=== PATIENT | female | born 1980 | race Caucasian/White ===

== ENCOUNTER → 2023-03-19 08:14 | Outpatient (REF) | payer MEDICARE, OTHER, SELFPAY ==
[2023-03-19 08:20] VITALS: BP 106/78; BP_SYST 94
[2023-03-19 09:05] VITALS: BP 107/76; BP_SYST 80
[2023-03-19 09:15] VITALS: BP 107/76
[2023-03-19 11:42] LABS: Body Fluid Mononuclear 90.6 %; Body Fluid Polymorphonuclear 9.4 %; Body Fluid WBC 128 /CUMM
[2023-03-19 11:43] LABS: Body Fluid Second Tech EM
== END ==
LOC: RADI 08:14
PROVIDERS: ATTENDING PHYSICIAN Internal Medicine Gastroenterology; FAMILY PHYSICIAN Registered Nurse
DX: R18.8 Other ascites (principal)
CPT/HCPCS: 49083; 87015; 87070; 87205; 89051

== ENCOUNTER → 2023-03-26 08:22 | Outpatient (REF) | payer MEDICARE, OTHER, SELFPAY ==
[2023-03-26 08:35] VITALS: BP 113/74; BP_SYST 84
[2023-03-26 08:45] VITALS: BP 105/73; BP_SYST 82
[2023-03-26 09:49] LABS: % Basophils 0.9 % (0-2); % Eosinophils 8.1 % (0-6); % Immature Granulocytes 0.3 % (0-0.5); % Lymphocytes 32.7 % (20.5-51.1); % Monocytes 7.8 % (1.7-9.3); % Neutrophils 50.2 % (42.2-75.2); Absolute Eosinophils 0.3 10^3/uL (0-0.7); Absolute Lymphocytes 1.1 10^3/uL (1.2-3.4); Absolute Monocytes 0.3 10^3/uL (0.1-0.6); Absolute Neutrophils 1.6 10^3/uL (1.4-6.5); Hematocrit 32.6 % (37.0-47.0); Hemoglobin 10.4 g/dL (12.0-16.0); Mean Corp Hgb Conc. 31.9 g/dL (33.0-37.0); Mean Corpuscular Hgb 29.7 pg (27.0-31.0); Mean Corpuscular Volume 93.1 fL (81.0-99.0); Mean Platelet Volume 12.2 fL (7.4-10.4); Nucleated Red Blood Cells % 0 %; Platelet Count 95 10^3/uL (130-400); Red Cell Dist. Width 17.4 % (11.5-14.5); White Blood Cell Count 3.2 10^3/uL (4.8-10.8)
[2023-03-26 09:51] LABS: INR 1.61
[2023-03-26 09:52] LABS: APTT 37.2 Sec (23.4-35.0)
[2023-03-26 10:11] LABS: ALT (SGPT) 20 U/L (0-35); AST (SGOT) 49 U/L (14-36); Albumin 2.6 g/dl (3.5-5.0); Alkaline Phosphatase 104 U/L (38-126); Blood Urea Nitrogen 3 mg/dl (7-17); Calcium 7.8 mg/dl (8.4-10.2); Carbon Dioxide 27 mmol/L (22-30); Chloride 101 mmol/L (98-107); Direct Bilirubin 0.7 mg/dl (0.0-0.4); Estimated Creatinine Clearance 100 ml/min; Glucose 84 mg/dl (70-99); Potassium 3.2 mmol/L (3.5-5.1); Sodium 135 mmol/L (135-145); Total Protein 5.8 g/dl (6.3-8.2); eGFR > 60.00
== END ==
LOC: RADI 08:22
PROVIDERS: ATTENDING PHYSICIAN Internal Medicine Gastroenterology; FAMILY PHYSICIAN Registered Nurse
DX: R18.8 Other ascites (principal); Z53.8 Procedure and treatment not carried out for other reasons
CPT/HCPCS: 36415; 76705; 80048; 80076; 85025; 85610; 85730

== ENCOUNTER 2023-03-29 06:33 | Day surgery (SDC) | payer MEDICARE, OTHER, SELFPAY ==
[2023-03-29 11:42] VITALS: BMI 20.9
[2023-03-29 11:43] VITALS: BP 110/76
[2023-03-29 11:55] VITALS: BMI 20.9
[2023-03-29 13:10] VITALS: BP 119/93
[2023-03-29 13:15] VITALS: BP 119/93
[2023-03-29 13:24] VITALS: BP 116/83
[2023-03-29 13:30] VITALS: BP 118/82
== END 2023-03-29 14:00 | disposition home or self-care (01) ==
LOC: SDS 06:33
PROVIDERS: ATTENDING PHYSICIAN Internal Medicine Gastroenterology
DX: I85.00 Esophageal varices without bleeding (principal); K31.89 Other diseases of stomach and duodenum; K22.70 Barrett's esophagus without dysplasia
CPT/HCPCS: 43244

== ENCOUNTER 2023-03-31 22:53 | Emergency (ER) | payer MEDICARE, OTHER, SELFPAY ==
[2023-03-31 23:01] VITALS: BP 137/83
--- NOTE | 2023-03-31 23:51 | ED.GENMED ---
Addendum entered and electronically signed by Omid Xiong PA-C 04/01/23 14:41:
Blood cultures positive for gram-negative bacilli. Spoke with patient immediately after receiving the information from the lab. Advised her to come back for evaluation.
Original Note:
History of Present Illness
General
Chief Complaint: Fever
Time Seen by Provider: 03/31/23 23:41
Travel History
Have you had any contact with someone who has COVID-19?: No
Do you have any symptoms of coronavirus? Fever > 100 degrees, chills, cough, shortness of breath, sore throat, loss of taste or smell, muscle aches, or headache?: No
History of Present Illness
History of Present Illness:
42-year-old female with history of alcoholic cirrhosis with ascites and esophageal varices presents to the emergency department for evaluation of fever and upper abdominal pain beginning earlier today. She is 2 days status post an upper endoscopy
performed at this hospital with banding of esophageal varices x 3. She did have voice hoarseness and throat discomfort postprocedural but this has been improving, awoke today with a fever that has not improved. Also reports intermittent upper
abdominal pain that is new. Denies any chest pain, back pain, nausea, vomiting, diarrhea, or coughing. Denies any cold or flu symptoms.
Past History
Past History
ED Past Medical History: None
ED Past Surgical History: None
Social History
Alcohol: Former
Review of Systems
Review of Systems
Allergies reviewed?: Yes
All Other Systems: ROS reviewed and negative except as documented in HPI and ROS
Phy Exam
Physical Exam
Physical Exam:
GEN: Thin and frail appearing, not cachectic
Eyes: PERRLA, EOMs intact, no scleral icterus
HENT: NCAT, oral mucosa moist, no JVD, no cervical adenopathy.
Lungs: CTAB, no wheezes, rales, rhonchi, normal chest wall excursion
Cardiac: RRR, no M/R/G, no peripheral edema. Radial pulses 2+ bilat
Abdomen: Mildly protuberant abdomen, generally soft and nonrigid
Neuro: AO x 3, no focal deficits to BUE/BLE, normal sensation throughout
MSK: No gross deformity or ecchymosis. No edema. No digital clubbing
Skin: No rashes, petechiae. Normal color, no pallor or jaundice.
Psych: Calm, cooperative, proper hygiene
Course
Orders/Labs/Results
Orders:
Orders
03/31/23 23:50
COVID-19 Antigen Urgent
Source: Nasal Swab
Complete Blood Count/With Diff Urgent
Comprehensive Metabolic Panel Urgent
Lipase Urgent
Prothrombin Time Urgent
Blood Culture Q30M
WARREN Source: Blood/Venous
Specimen Description:
03/31/23 23:51
Urinalysis Reflex To Culture Urgent
Date Specimen was Collected: 04/01/23
Time Specimen was Collected: 00:36
Influenza A+B Rapid Molecular Urgent
WARREN Source: Nasal Swab
Specimen Description:
04/01/23 00:00
CT Abd/Pel (IV only)-DH only Urgent
Reason For Exam: fever, upper abd pain, s/p endoscopy 2d ago
04/01/23 00:15
HCG, Serum Qualitative Screen Urgent
Blood Culture Q30M
WARREN Source: Blood/Venous
Specimen Description:
04/01/23 00:25
Test Result ONCE
04/01/23 01:01
Urine Microscopic Reflex Cult Urgent
Abnormal Lab Results
04/01/23 04/01/23 04/01/23
00:14 00:15 01:01
RBC 3.63 L 10^6/uL
(4.20-5.40)
Hgb 10.5 L g/dL
(12.0-16.0)
Hct 31.8 L %
(37.0-47.0)
RDW 16.9 H %
(11.5-14.5)
Plt Count 87 L 10^3/uL
(130-400)
MPV 11.3 H fL
(7.4-10.4)
Absolute Lymphs (auto) 0.9 L 10^3/uL
(1.2-3.4)
Lymphocytes % 17.7 L %
(20.5-51.1)
PT 19.3 H Sec
(11.4-14.6)
Sodium 130 L mmol/L
(135-145)
Potassium 3.3 L mmol/L
(3.5-5.1)
BUN 4 L mg/dl
(7-17)
Calcium 7.7 L mg/dl
(8.4-10.2)
Total Bilirubin 2.1 H mg/dl
(0.2-1.3)
AST 42 H U/L
(14-36)
Total Protein 6.1 L g/dl
(6.3-8.2)
Albumin 2.7 L g/dl
(3.5-5.0)
Urine Ketones 1+ A
(Negative)
Urine Bilirubin 2+ A
(Negative)
Urine Urobilinogen 4+ A
(Neg - 1+)
Leukocyte Esterase Rfl Trace A
(Negative)
Urine Bacteria (Reflex) Few A
(Negative)
04/01/23 00:14
04/01/23 00:15
Vital Signs
Initial and Last Documented VS:
Initial Vital Signs
Temp Pulse Resp BP Pulse Ox
100.4 F H 101 20 137/83 90
03/31/23 23:01 03/31/23 23:01 03/31/23 23:01 03/31/23 23:01 03/31/23 23:01
Last Documented Vital Signs
Temp Pulse Resp BP Pulse Ox
100.4 F H 92 19 132/78 96
03/31/23 23:01 04/01/23 01:00 04/01/23 01:00 04/01/23 01:00 04/01/23 01:00
MDM/Problems Addressed
MDM/Problems Addressed:
Uncertain etiology to the patient's fever at this time. Certainly would consider bacteremia given recent endoscopy however procedure was performed approximately 48 hours ago thus not highly suspicious that she would be bacteremic this rapidly. SBP
is also considered, the patient has an appointment for paracentesis on Sunday and I feel it is reasonable for this to wait an additional 24 hours for her routine appointment given that she is clinically stable and is not septic, in addition in the
setting of her coagulopathy. Discussed ED return parameters
*Critical Care Note
Total Time (30-74mins, 75-104mins- exclusive of procedures): Not Applicable
ED Attending Note
-
Portions of this chart may have been created with voice recognition software.� Occasional wrong word or��sound alike� substitutions may have occurred due to the inherent limitations of voice recognition software.
Discharge Plan
Departure
Patient Disposition: Home (Routine Discharge)
Date of Disposition: 04/01/23
Time of Disposition: 03:16
Patient with high blood pressure during this ER visit?: No
Discharge Problem:
Fever
Instructions: Abdominal Pain
Prescriptions:
No Action
thiamine HCl (vitamin B1) 100 mg Tablet
100 mg PO DAILY Qty: 0 0RF
folic acid 1 mg tablet
1 mg PO DAILY
furosemide 40 MG tablet
40 mg PO DAILY Qty: 30 0RF
pantoprazole 40 mg Tablet,Delayed Release (Dr/Ec)
40 mg PO BID Qty: 60 0RF
spironolactone 50 MG tablet
100 mg PO DAILY Qty: 30 0RF
lactulose 20 gram/30 mL Solution
20 g PO QID Qty: 2880 0RF
amoxicillin 875 mg Tablet
475 mg PO BID
oxycodone 10 mg Tablet
10 mg PO Q6H PRN (Reason: pain)
Referrals:
Marah Machado CRNP [Family Provider] -
Activity Restrictions/Additional Instructions:
If blood cultures are positive we will call you and ask you to return
We discussed the possibility of peritonitis, or infected fluid in the belly. You have an appointment for a paracentesis on Sunday, this will determine if your fluid is infected
Return to the ER if symptoms worsen
Interventions
Interventions:
*Risk Screen - Suicide Last Done: 03/31/23 23:55
*General Assessment Last Done: 03/31/23 23:01
*Neglect/Abuse Screening Last Done: 03/31/23 23:01
ED- Fall Risk Assessment Last Done: 03/31/23 23:01
*ED COVID-19 Vaccine History Last Done: 03/31/23 23:01
[facility]-Wgtvmzjfuy Assessment Last Done: 03/31/23 23:55
ED- Neurological Assessment Last Done: 03/31/23 23:55
ED-Skin Assessment Last Done: 03/31/23 23:55
[2023-04-01 00:50] LABS: INR 1.64; PT 19.3 Sec (11.4-14.6)
[2023-04-01 00:57] LABS: COVID-19 Antigen Negative (Negative)
[2023-04-01 01:00] VITALS: BP 132/78
[2023-04-01 01:09] LABS: % Basophils 0.8 % (0-2); % Eosinophils 2.4 % (0-6); % Immature Granulocytes 0.2 % (0-0.5); % Lymphocytes 17.7 % (20.5-51.1); % Monocytes 7.3 % (1.7-9.3); % Neutrophils 71.6 % (42.2-75.2); Absolute Eosinophils 0.1 10^3/uL (0-0.7); Absolute Lymphocytes 0.9 10^3/uL (1.2-3.4); Absolute Monocytes 0.4 10^3/uL (0.1-0.6); Absolute Neutrophils 3.6 10^3/uL (1.4-6.5); Hematocrit 31.8 % (37.0-47.0); Hemoglobin 10.5 g/dL (12.0-16.0); Mean Corpuscular Hgb 28.9 pg (27.0-31.0); Mean Corpuscular Volume 87.6 fL (81.0-99.0); Mean Platelet Volume 11.3 fL (7.4-10.4); Nucleated Red Blood Cells % 0 %; Platelet Count 87 10^3/uL (130-400); Red Blood Cell Count 3.63 10^6/uL (4.20-5.40); Red Cell Dist. Width 16.9 % (11.5-14.5)
[2023-04-01 01:23] LABS: ALT (SGPT) 19 U/L (0-35); AST (SGOT) 42 U/L (14-36); Albumin 2.7 g/dl (3.5-5.0); Alkaline Phosphatase 107 U/L (38-126); Blood Urea Nitrogen 4 mg/dl (7-17); Calcium 7.7 mg/dl (8.4-10.2); Carbon Dioxide 25 mmol/L (22-30); Chloride 101 mmol/L (98-107); Glucose 99 mg/dl (70-99); Lipase 51 U/L (23-300); Potassium 3.3 mmol/L (3.5-5.1); Sodium 130 mmol/L (135-145); Total Bilirubin 2.1 mg/dl (0.2-1.3); Total Protein 6.1 g/dl (6.3-8.2); eGFR > 60.00
[2023-04-01 01:26] LABS: Urine Albumin Trace (Neg - Trace); Urine Bilirubin 2+ (Negative); Urine Character Clear (Clear); Urine Color Amber; Urine Glucose Negative (Negative); Urine Ketone 1+ (Negative); Urine Leukocyte Trace (Negative); Urine Nitrite Negative (Negative); Urine Occult Blood Negative (Negative); Urine Urobilinogen 4+ (Neg - 1+)
[2023-04-01 01:36] LABS: HCG, Serum Qualitative Screen Negative
[2023-04-01 01:53] LABS: Urine Squamous Cell 26-30 /LPF (Few)
[2023-04-01 01:54] LABS: Urine Bacteria Few (Negative); Urine Red Blood Cell None Seen /HPF (0-2)
[2023-04-01 04:04] VITALS: BP 128/78
== END 2023-04-01 04:08 | disposition home or self-care (01) ==
LOC: EMR 22:53
PROVIDERS: Physician Assistant; EMERGENCY PHYSICIAN Emergency Medicine; FAMILY PHYSICIAN Registered Nurse
DX: R50.9 Fever, unspecified (principal); R78.81 Bacteremia; R10.10 Upper abdominal pain, unspecified; Z11.52 Encounter for screening for COVID-19
CPT/HCPCS: 99284; 74177; 80053; 81003; 81015; 83690; 84703; 85025; 85610; 87040; 87077; 87186; 87205; 87502; 87811; Q9967

== ENCOUNTER 2023-04-01 20:13 | Inpatient (IN) | payer MEDICARE, OTHER, SELFPAY ==
[2023-04-01 17:46] VITALS: BP 116/78
[2023-04-01 18:41] LABS: % Basophils 0.4 % (0-2); % Eosinophils 1.8 % (0-6); % Immature Granulocytes 0.2 % (0-0.5); % Lymphocytes 18.2 % (20.5-51.1); % Monocytes 9.1 % (1.7-9.3); % Neutrophils 70.3 % (42.2-75.2); Absolute Eosinophils 0.1 10^3/uL (0-0.7); Absolute Lymphocytes 0.9 10^3/uL (1.2-3.4); Absolute Monocytes 0.5 10^3/uL (0.1-0.6); Absolute Neutrophils 3.6 10^3/uL (1.4-6.5); Hematocrit 28.9 % (37.0-47.0); Hemoglobin 9.8 g/dL (12.0-16.0); Mean Corp Hgb Conc. 33.9 g/dL (33.0-37.0); Mean Corpuscular Hgb 29.3 pg (27.0-31.0); Mean Corpuscular Volume 86.5 fL (81.0-99.0); Mean Platelet Volume 11.6 fL (7.4-10.4); Nucleated Red Blood Cells % 0 %; Platelet Count 87 10^3/uL (130-400); Red Blood Cell Count 3.34 10^6/uL (4.20-5.40); Red Cell Dist. Width 17.2 % (11.5-14.5); White Blood Cell Count 5.1 10^3/uL (4.8-10.8)
[2023-04-01 18:50] LABS: INR 1.97; PT 22.3 Sec (11.4-14.6)
[2023-04-01 18:52] LABS: ALT (SGPT) 19 U/L (0-35); AST (SGOT) 40 U/L (14-36); Albumin 2.7 g/dl (3.5-5.0); Alkaline Phosphatase 100 U/L (38-126); Blood Urea Nitrogen 4 mg/dl (7-17); Calcium 7.6 mg/dl (8.4-10.2); Carbon Dioxide 24 mmol/L (22-30); Chloride 102 mmol/L (98-107); Glucose 101 mg/dl (70-99); Potassium 3.4 mmol/L (3.5-5.1); Sodium 130 mmol/L (135-145); Total Bilirubin 2.4 mg/dl (0.2-1.3); eGFR > 60.00
--- NOTE | 2023-04-01 19:08 | ED.GENMED ---
History of Present Illness
General
Chief Complaint: Abnormal Lab Value
Time Seen by Provider: 04/01/23 18:04
Travel History
Have you had any contact with someone who has COVID-19?: No
Do you have any symptoms of coronavirus? Fever > 100 degrees, chills, cough, shortness of breath, sore throat, loss of taste or smell, muscle aches, or headache?: No
History of Present Illness
History of Present Illness:
42-year-old female with history of alcoholic cirrhosis with ascites returns the emergency department due to positive blood cultures. She was seen in this emergency department overnight last night self due to acute fever. She is now 3 days status
post upper endoscopy with esophageal variceal banding. Extensive workup last night showed no evidence for acute bacterial infection however 1 out of 2 blood cultures were positive this morning for gram-negative bacteremia and she was advised to
come back for admission. She does continue to have abdominal pain
Past History
Past History
ED Past Medical History: None
ED Past Surgical History: None
Social History
Alcohol: Former
Review of Systems
Review of Systems
Allergies reviewed?: Yes
All Other Systems: ROS reviewed and negative except as documented in HPI and ROS
Phy Exam
Physical Exam
Physical Exam:
GEN: Thin and frail, chronically ill-appearing, no acute distress
HEENT: Oral mucosa moist, no scleral icterus
Cardiac: Regular rate
Lung: No respiratory distress, no tachypnea
Abdomen: Protuberant, soft, grossly nontender
MSK: No gross deformity or injuries
Skin: Good color, no pallor or jaundice, no rashes
Neuro: AO x3, moves all extremities freely
Psych: Calm, cooperative
Course
Orders/Labs/Results
Orders:
Orders
04/01/23 18:31
Complete Blood Count/With Diff Urgent
Comprehensive Metabolic Panel Urgent
Prothrombin Time Urgent
Blood Culture Q30M
WARREN Source: Blood/Venous
Specimen Description:
04/01/23 18:57
Piperacillin/Tazo 3.375 Gram [Zosyn] 3.375 gram in 50 ml IV NOW
04/01/23 19:30
Blood Culture Q30M
WARREN Source: Blood/Venous
Specimen Description:
04/01/23 19:51
Admit/Transfer Patient As Directed
Co-Sign Provider:
Level of Care: Inpatient admission
Assign to:: Medical/Surgical
Physician / Group: Hospitalist
Diagnosis: Positive blood cultures
Reason for Hospitalization: Positive blood cultures
Expected length of stay greater than two midnights?: Yes
ELOS- Estimated Length of Stay in days: 3
I certify the patient meets the requirements for IP care: Yes
04/01/23 19:53
Code Status As Directed
Resuscitation Status: Full Code
04/01/23 21:02
Oxycodone [Roxicodone] 10 mg PO Q6HPRN PRN
Pantoprazole [Protonix] 40 mg PO BID
Potassium Chloride Powder [Klor-Con] 20 meq PO BID
04/01/23 21:02
Activity As Directed
Activity Level: With Assistance
Pneumatic Compression Sleeves As Directed
Type: Knee high
Vital Signs As Directed
Frequency: Per unit guidelines
DX Deep Vein Thrombosis Video Routine
04/01/23 22:00
Lactulose [Duphalac/Chronulac] 20 grams PO QID
Sucralfate Suspension [Carafate Suspension] 1 gm PO QID
04/02/23 02:00
Piperacillin/Tazo 3.375 Gram [Zosyn] 3.375 grams in 50 ml IV Q6H
04/02/23 Breakfast
Regular
At Your Request: Full Participation
Basic Metabolic Panel IN AM
Complete Blood Count/No Diff IN AM
Magnesium IN AM
04/02/23 08:00
FOLic ACID [Folvite] 1 mg PO DAILY
Furosemide [Lasix] 40 mg PO DAILY
Spironolactone [Aldactone] 150 mg PO DAILY
Thiamine HCl [Vitamin B1] 100 mg PO DAILY
Abnormal Lab Results
04/01/23
18:31
RBC 3.34 L 10^6/uL
(4.20-5.40)
Hgb 9.8 L g/dL
(12.0-16.0)
Hct 28.9 L %
(37.0-47.0)
RDW 17.2 H %
(11.5-14.5)
Plt Count 87 L 10^3/uL
(130-400)
MPV 11.6 H fL
(7.4-10.4)
Absolute Lymphs (auto) 0.9 L 10^3/uL
(1.2-3.4)
Lymphocytes % 18.2 L %
(20.5-51.1)
PT 22.3 H Sec
(11.4-14.6)
Sodium 130 L mmol/L
(135-145)
Potassium 3.4 L mmol/L
(3.5-5.1)
BUN 4 L mg/dl
(7-17)
Creatinine 0.5 L mg/dL
(0.6-1.0)
Glucose 101 H mg/dl
(70-99)
Calcium 7.6 L mg/dl
(8.4-10.2)
Total Bilirubin 2.4 H mg/dl
(0.2-1.3)
AST 40 H U/L
(14-36)
Total Protein 6.0 L g/dl
(6.3-8.2)
Albumin 2.7 L g/dl
(3.5-5.0)
04/01/23 18:31
04/01/23 18:31
Vital Signs
Initial and Last Documented VS:
Initial Vital Signs
Temp Pulse Resp BP Pulse Ox
99.6 F 99 18 116/78 93
04/01/23 17:46 04/01/23 17:46 04/01/23 17:46 04/01/23 17:46 04/01/23 17:46
Last Documented Vital Signs
Temp Pulse Resp BP Pulse Ox
100.0 F 93 16 110/72 95
04/01/23 21:11 04/01/23 21:11 04/01/23 21:11 04/01/23 21:11 04/01/23 21:11
MDM/Problems Addressed
MDM/Problems Addressed:
Patient's bacteremia basis SBP versus GI translocation from recent EGD. Today Limited bedside ultrasound did find evidence for ascites no significant fluid pocket that would be amenable to percutaneous drainage particular given the patient's
coagulopathy will defer this to interventional radiology if deemed necessary, will start broad-spectrum antibiotics given that she is febrile
*Critical Care Note
Total Time (30-74mins, 75-104mins- exclusive of procedures): Not Applicable
ED Attending Note
-
Portions of this chart may have been created with voice recognition software.� Occasional wrong word or��sound alike� substitutions may have occurred due to the inherent limitations of voice recognition software.
Discharge Plan
Departure
Patient Disposition: Admit
Date of Disposition: 04/01/23
Time of Disposition: 19:08
Admit to: Med/Surg
Presentation/result/management discussed w/ accepting MD/DO: Hospitalist
Discharge Problem:
Bacteremia due to Gram-negative bacteria
Interventions
Interventions:
*Risk Screen - Suicide Last Done: 04/01/23 21:43
*General Assessment Last Done: 04/01/23 18:07
*Neglect/Abuse Screening Last Done: 04/01/23 18:07
ED- Fall Risk Assessment Last Done: 04/01/23 19:42
*ED COVID-19 Vaccine History Last Done: 04/01/23 21:43
*Nursing Disposition Last Done: 04/01/23 20:55
Discharge Date and Time
Discharge Date/Time: 04/01/23 20:55
[2023-04-01 19:32] VITALS: BP 108/75
[2023-04-01] MEDS: ZOSYN 50 IV (19:33)
--- NOTE | 2023-04-01 19:34 | HPS.HSE ---
Family Physician
-
Family Physician: NISHA New
Chief Complaint
-
Positive blood culture
History of Present Illness
42F with a recent admissions to because of an upper GI bleed requiring blood transfusion and ligation procedure, also another one because of low hemoglobin noted on blood work. She had an endoscopy 3 days ago with variceal ligation and blood
cultures came back positive with gram neg bacteria. In ED she had no focal complaints.
Medical History
Past Medical History
Past Medical History: Reports Other
Additional Past Medical History:
ACBLA 2/2 bleeding esophageal varices due to alcohol abuse disorder
HX cirrhosis and decompensated liver failure
Recent HX Acute hypoxemic respiratory failure
Severe abdominal pain
Hypokalemia/hypocalcemia/hyponatremia HX
Thrombocytopenia due to cirrhosis/past alcohol abuse
Anemia of Chronic Disease
HX small B/L Pleural Effusions
Anxiety and Depression
Severe protein calorie malnutrition
SBP
Jaundice
Past Surgical History: Reports Other
Additional Past Surgical History:
endoscopy procedures
Social History
Tobacco: Former Smoker
Alcohol: Former
Drug: None
Family History
Family History: Not pertinent
Allergies / Home Medications
Allergies reflects when Allergies were last updated in [facility].
Home Medications with original date entered in [facility]
Allergy/Medication List:
Allergies
Allergy/AdvReac Type Severity Reaction Status Date / Time
No Known Allergies Allergy Verified 03/31/23 23:00
Home Medications
thiamine HCl (vitamin B1) 100 mg tablet 100 mg PO DAILY #0 tabs 02/27/23
folic acid 1 mg tablet 1 mg PO DAILY Supplement 03/04/23
furosemide 40 mg tablet 40 mg PO DAILY #30 tabs 03/06/23
lactulose 20 gram/30 mL oral solution 20 g (30 mL) PO QID #2,880 mL 03/06/23
pantoprazole 40 mg tablet,delayed release 40 mg PO BID #60 tabs 03/06/23
oxycodone 10 mg tablet 10 mg PO Q6H PRN pain 03/26/23
spironolactone 100 mg tablet 100 mg PO DAILY 04/01/23
spironolactone 50 mg tablet 50 mg PO DAILY 04/01/23
sucralfate 100 mg/mL oral suspension 10 ml PO QID 04/01/23
Review of Systems
-
History Source: Patient
A 12 point ROS was completed and negative except as noted: Yes
Physical Exam
Vital Signs
Vital Signs
Temp Pulse Resp BP Pulse Ox
99.8 F 96 16 108/75 97
04/01/23 19:32 04/01/23 19:32 04/01/23 19:32 04/01/23 19:32 04/01/23 19:32
Physical Exam
General: No Apparent Distress, Comfortable, Conversant and Appears Chronically Ill
HEENT: [place] Conjunctivae, Nose Appears Normal and Ears Appear Normal
Respiratory: Clear
Cardiac: S1/S2, Regular Rhythm and Murmur
GI: Soft, Non Tender and Non Distended
Musculoskeletal: No Clubbing, No Cyanosis and No Edema
Skin: Warm, Dry and Jaundice; No Rash
Neuro: Awake, Alert, Oriented and AO x 3
Psych: Calm
Laboratory Results
-
04/01/23 18:31
04/01/23 18:31
Laboratory Results
PT 22.3 Sec (11.4-14.6) H 04/01/23 18:31
INR 1.97 04/01/23 18:31
Total Bilirubin 2.4 mg/dl (0.2-1.3) H 04/01/23 18:31
AST 40 U/L (14-36) H 04/01/23 18:31
ALT 19 U/L (0-35) 04/01/23 18:31
Alkaline Phosphatase 100 U/L (38-126) 04/01/23 18:31
Data Reviewed
-
Lab Data: Labs Reviewed by me
Impression/Plan
-
IMPRESSION:
42 year old woman with positive blood culture after endoscopy. Endoscopy report:
�� � 'Three columns of grade III varices with no bleeding and no stigmata of
�� � recent bleeding were found in the lower third of the esophagus. They
�� � were large in size. No red grisel signs were present. Three bands (four
�� � bands on three varices - one varix had 2 bands placed) were successfully
�� � placed with complete eradication, resulting in deflation of varices.
�� � Varices at 9, 12, 3 o clock - one at 9 and 3 o'clock oozed post banding.
�� � A slow ooze remained at the end of the procedure.
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
�� � Patchy mildly erythematous mucosa without bleeding was found in the
�� � entire examined stomach.
�� � The examined duodenum was normal.'
Recommendation:� � � �
- Clear liquid diet. Advance diet tomorrow.
�� � � � � � � � � � - Continue present medications. Recommend carafate qid
�� � � � � � � � � � - x10 days post banding can mix with ice water to help
�� � � � � � � � � � � with pain as well.
�� � � � � � � � � � - Repeat upper endoscopy in 4 weeks for endoscopic
�� � � � � � � � � � � band ligation.
PLAN:
1. Positive blood cultures. No fever. No abd tenderness.
Start broad spectrum abx, zosyn
Switch to oral abx when resistance pattern available
She has a heart murmur, which she states has been there since 2018.
Otherwise continue home meds.
2. Low Na - near her baseline. No specific treatment needed
3. Low K - near her baseline. Add oral K as tolerated
4. Anemia from chronic disease - current numbers better than baseline
No specific therapy needed at this time
5. Low platelets - at baseline. No signs of bleeding
No specific therapy needed at this time
Full code
VCD for DVTp
[2023-04-01 21:11] VITALS: BP 110/72; BMI 20.9
[2023-04-01] MEDS: DUPHALAC/CHRONULAC 20 GRAMS PO (21:37)
[2023-04-01] MEDS: KLOR-CON 20 MEQ PO (21:37)
[2023-04-01] MEDS: PROTONIX 40 MG PO (21:37)
[2023-04-01] MEDS: CARAFATE SUSPENSION 1 GM PO (22:17)
--- NOTE | 2023-04-01 22:34 | PTCARENOTE ---
Patient arrived from the ED via stretcher at approximately 2100. Patient ambulated from stretcher to bed x1 assist. AAOx3. VSS as documented. Assessment as documented. Patient oriented to room. Bed in lowest position. Call cooper within reach.
[2023-04-01 23:24] VITALS: BP 108/61
[2023-04-01] MEDS: ROXICODONE 10 MG PO (23:26)
[2023-04-02] MEDS: ZOSYN 50 IV ×3 (02:14→15:20)
[2023-04-02] MEDS: OCEAN, SALINE MIST 2 SPRAYS NASAL (02:41)
[2023-04-02 05:43] VITALS: BMI 20.6
[2023-04-02 06:28] LABS: Hematocrit 25.1 % (37.0-47.0); Hemoglobin 8.4 g/dL (12.0-16.0); Mean Corp Hgb Conc. 33.5 g/dL (33.0-37.0); Mean Corpuscular Hgb 29.4 pg (27.0-31.0); Mean Corpuscular Volume 87.8 fL (81.0-99.0); Platelet Count 75 10^3/uL (130-400); Red Blood Cell Count 2.86 10^6/uL (4.20-5.40); Red Cell Dist. Width 17.2 % (11.5-14.5)
[2023-04-02 06:58] LABS: Blood Urea Nitrogen 3 mg/dl (7-17); Calcium 7.2 mg/dl (8.4-10.2); Carbon Dioxide 24 mmol/L (22-30); Chloride 101 mmol/L (98-107); Estimated Creatinine Clearance 114 ml/min; Glucose 106 mg/dl (70-99); Magnesium 1.7 mg/dl (1.6-2.3); Potassium 3.2 mmol/L (3.5-5.1); Sodium 133 mmol/L (135-145); eGFR > 60.00
[2023-04-02 07:00] VITALS: BP 97/57
[2023-04-02] MEDS: PROTONIX 40 MG PO ×2 (08:37→20:33)
[2023-04-02] MEDS: VITAMIN B1 100 MG PO (08:37)
[2023-04-02] MEDS: FOLVITE 1 MG PO (08:37)
[2023-04-02] MEDS: KLOR-CON 20 MEQ PO (08:37)
[2023-04-02] MEDS: CARAFATE SUSPENSION 1 GM PO ×3 (08:38→21:38)
[2023-04-02] MEDS: DUPHALAC/CHRONULAC 20 GRAMS PO ×3 (08:38→21:38)
[2023-04-02] MEDS: ROXICODONE 10 MG PO ×3 (08:50→21:38)
[2023-04-02] MEDS: LASIX PO (09:25)
[2023-04-02] MEDS: ALDACTONE PO (09:25)
--- NOTE | 2023-04-02 09:32 | W.PN.HOSP.TC ---
Today's Communication/Plan
-
IR consult
OMFS consult
ID consult
IV Zosyn
F/U final cultures
Assessment / Plan
Assessment / Plan
Ms. Teresa Kelly is a 42 yo woman with hx alcohol cirrhosis, decompensated liver failure with ascites, hx hepatic encephalopathy, chronic pain syndrome, anxiety/depression, recent EGD 03/29 with banding x 3 espohageal varices presents to ER 03/31
with fever called back on 04/01 given blood cultures showed gram negative bacteremia.
CT A/P (IV only contrast)
IMPRESSION:
1. � Findings consistent with known cirrhosis with a cirrhotic liver and a moderate amount of ascites similar to the previous exam. Moderate splenomegaly, mildly increased. Prominent gastroesophageal varices similar to previous. The distal
esophageal wall thickening. Findings consistent with portal hypertension. Portal vein patent.
2. � Wall thickening of the right colon, may represent superimposed colitis in a patient with moderate ascites.
3. � Cholelithiasis.
Gram negative bacteremia
-presented to ER on 03/31 with fever
-s/p recent procedure EGD with varices s/p banding; CT A/P without perforation. GI updated no admission, no need for formal consult at this time
-moderate ascites --> IR consult to rule out SBP (was due for tap today as outpatient)
-patient with significant gum disease --> OMFS consult
-ID consult
-continue IV Zosyn
-F/U final cultures
Alcohol Cirrhosis
Decompensated liver failure with ascites
portal hypertensive gastropathy
Hx esophageal varices
-patient was admitted to from 03/03-03/06 for anemia found to have esophageal varices on EGD s/p banding. during this hospitalization she had paracentesis x 2 (neg SBP). She is s/p repeat EGD on 03/29.
-continue UROLOGIST MD diuretics (hold today with para)
Hyponatremia in setting of ascites - near her baseline.� No specific treatment needed
Hypokalemia
-replete
Anemia from chronic disease
-monitor daily
-monitor for any signs of bleeding
Chronic pain syndrome
cont UROLOGIST MD PO Dilaudid PRN�
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
Anxiety and Depression
# Severe protein calorie malnutrition
Full code
VCD for DVTp
Anticipated Discharge: > 48 hours
Subjective/Interval History
-
Date of Service: April 02, 2023
describes dental infection and she took amoxicillin one week ago
cannot get in to see dentis because needs hepatology and heme clearance
abdomen feels mildly distended
Objective Data
-
Labs:
Laboratory Results
04/02/23
05:05
WBC 4.0 L
Hgb 8.4 L
Hct 25.1 L
Plt Count 75 L
Sodium 133 L
Potassium 3.2 L
Chloride 101
Carbon Dioxide 24
BUN 3 L
Creatinine 0.6
Glucose 106 H
Calcium 7.2 L
Vital Signs:
Vital Signs
Temp Pulse Resp BP Pulse Ox
99.3 F 90 18 97/57 96
04/02/23 07:00 04/02/23 09:25 04/02/23 07:00 04/02/23 09:25 04/02/23 07:00
I&O
04/01/23 04/02/23 04/03/23
06:59 06:59 06:59
Intake Total 480 / 480
Balance 480 / 480
Review of Systems
-
History Source: Patient
All other systems: Reviewed and negative
Physical Exam
-
General: Other (frail appearing)
HEENT: PERRLA and Other (poor dental hygiene; )
Respiratory: Clear to Auscultation
Cardiac: Regular Rhythm and S1/S2
GI: Other (distended, + fluid wave )
Musculoskeletal: No Edema
Skin: Warm and Dry; Negative Rash
Neuro: AO x 3
Psych: Calm
Data Reviewed
-
Diagnostic Radiology: Report Reviewed by me
Labs: Labs Reviewed by me
[2023-04-02] MEDS: KCL 20 MEQ PO (10:40)
--- NOTE | 2023-04-02 11:01 | W.PN.UPDATE ---
Update Note
Progress Note Update
spoke to Dr. Jimenez and CT facial bone with IV contrast ordered per recs.
[2023-04-02] MEDS: CARAFATE SUSPENSION PO (14:00)
[2023-04-02] MEDS: DUPHALAC/CHRONULAC PO (14:00)
[2023-04-02 14:20] VITALS: BP 100/62; BP_SYST 72
[2023-04-02 14:22] VITALS: BMI 20.6
[2023-04-02 14:51] VITALS: BP 96/60
[2023-04-02 15:00] VITALS: BP 113/69
--- NOTE | 2023-04-02 15:19 | CM ---
Initial assessment completed with patient and friend in room. Patient lives alone in a 2 story home with basement and 5 stairs to enter. 1st floor is set up for living, BR/BR and laundry. Patient says she rarely goes to 2nd floor. She is
independent and drives, does not work at this time. She lost her job due to illnesses. Her brother is FRANK. Support system is 2 brothers and friends. She does not have any DME, does have PT/OT and VN with Roseanne on a weekly basis. She does use O2
at home at 2L continuously, She has an [employer], concentrator, one tank through [employer]. Pharmacy is [facility] in [place] and PCP is Marah CAMERON with [facility].
[2023-04-02 15:44] LABS: Body Fluid Mononuclear 30.8 %; Body Fluid Polymorphonuclear 69.2 %; Body Fluid WBC 901 /CUMM
[2023-04-02 15:47] LABS: Body Fluid Second Tech JKH
[2023-04-02 16:26] LABS: Body Fluid LDH < 90 U/L
--- NOTE | 2023-04-02 16:33 | CON.ID ---
Consultation
-
Date/Time Consultation Requested: 04/02/23 9:51
Date/Time Consultation Performed: 04/02/23 16:34
Requesting Provider: Dr Booth
Performing Provider: Dr Zacarias
Reason for Consultation: Positive blood culture
Chief Complaint / Past History
Chief Complaint
called in for gram neg bacteremia
History of Present Illness
Ms Sanches is a 42 year old female with history of decompensated cirrhosis s/p variceal banding for GI bleeding 03/03/23, during this admission had paracentesis x2 both negative for SBP, she was subsequently found to have gram negative bacteremia and
was called back in for further workup. She was seen in the ER 03/31 for fever, blood cultures were sent and have resulted with a gram negative. Abdominal pain is ongoing. Since arrival
CT scan: ascites, cirrhosis, portal HTN, possible colitis; IR consulted for paracentesis, started on zosyn
Since arrival here tmax 100.4, bp stable, wbc count initially 5.1 now 4.0, hgb 8.4, plt 75 (consistent with previous), no L shift, cr 0.6, t bili 2.4, ast 40, alt 19, alk pohs 100, hcg neg 04/01, 04/02 body fluid wbc 900, 70% PMNs for a PMN count of
630, ldh <90, 1 of two blood cultures with GNR in the aerobic bottle, CT a/p 04/01 no evidence of esophageal perforation, CT facial bones - 'No gross evidence for acute odontogenic disease. Several maxillary teeth are missing. No periapical
abscesses. Paranasal sinuses and mastoid air cells are clear.' she has been started on zosyn, ID is consulted for assistance with management.
Past History
Additional Past Medical History:
ACBLA 2/2 bleeding esophageal varices due to alcohol abuse disorder
HX cirrhosis and decompensated liver failure
Recent HX Acute hypoxemic respiratory failure
Severe abdominal pain
Hypokalemia/hypocalcemia/hyponatremia HX
Thrombocytopenia due to cirrhosis/past alcohol abuse
Anemia of Chronic Disease
HX small B/L Pleural Effusions
Anxiety and Depression
Severe protein calorie malnutrition
SBP
Jaundice
Additional Past Surgical History:
endoscopy
Allergy History:
No Known Allergies Allergy (Verified 03/31/23 23:00)
Medications Reviewed: Yes
Social History
Tobacco: Former Smoker
Alcohol: Former
Drug: None
Family History
Family History: Not Pertinent
Review of Systems
Review of Systems
General: Fever and Chills
All systems: All other systems were reviewed and were negative
Vital Signs
Temp Pulse Resp BP Pulse Ox
97.8 F 88 18 113/69 96
04/02/23 15:00 04/02/23 15:00 04/02/23 15:00 04/02/23 15:00 04/02/23 15:00
Physical Exam
Physical Exam
Constitutional: No Acute Distress
Cardiovascular: Regular Rate and S1/S2; Negative Murmur or Rub
Pulmonary: Clear and Symmetric; Negative Wheezes, Rales or Rhonchi
Gastrointestinal: Soft, Non Tender, Distended, Normal Bowel Sounds and Other (no peritoneal signs)
Skin: Warm, Dry, Rash (spider angiomas) and Jaundice (mild)
Lab / Diagnostic Study Results
04/02/23 05:05
04/02/23 05:05
Abs Immat Gran (auto) 0.0 10^3/uL (0-0.05) 04/01/23 18:31
Absolute Neuts (auto) 3.6 10^3/uL (1.4-6.5) 04/01/23 18:31
Absolute Lymphs (auto) 0.9 10^3/uL (1.2-3.4) L 04/01/23 18:31
Absolute Monos (auto) 0.5 10^3/uL (0.1-0.6) 04/01/23 18:31
Absolute Basos (auto) 0.0 10^3/uL (0-0.2) 04/01/23 18:
Immature Gran % 0.2 % (0-0.5) 04/01/23 18:
Neutrophils % 70.3 % (42.2-75.2) 04/01/23 18:
Lymphocytes % 18.2 % (20.5-51.1) L 04/01/23 18:
Monocytes % 9.1 % (1.7-9.3) 04/01/23 18:
Eosinophils % 1.8 % (0-6) 04/01/23 18:
Basophils % 0.4 % (0-2) 04/01/23 18:
PT 22.3 Sec (11.4-14.6) H 04/01/23 18:31
INR 1.97 04/01/23 18:
Microbiology Results
Micro:
04/02/23 14:34 Body Fluid Culture - Pending
Peritoneal Fluid Gram Stain - Pending
04/01/23 19:30 Blood Culture - Pending
Blood/Venous
04/01/23 18:31 Blood Culture - Pending
Blood/Venous
Assessment / Plan
SBP
Bacteremia - gram negative aerobe
- body fluid consistent with SPB
- repeat blood cultures in progress
- not known to be colonized with ESBL forming organisms
- CT neck without odontogenic disease at this time or sinusitis
- start ceftriaxone stop zosyn
- last QTc was >500 in NSR
- follow clinically
[2023-04-02 16:59] LABS: Body Fluid Protein < 2.0 g/dl
--- NOTE | 2023-04-02 17:52 | CON.ORS ---
Consultation - Oral Surgery
Subjective
�42F with hx alcohol cirrhosis, decompensated liver failure with ascites, s/p EGD 03/29 with banding x 3 espohageal varices who presented to the ER 03/31 with fever and was called back on 04/01 given blood cultures showed gram negative bacteremia.
Consult for evaluation for dental infection/poor dentition. Patient reports that she sees general dentist Dr. Lema as an outpatient and has difficulty coordinating dental care due to chronic health issues and need for clearances prior to dental
procedures. Patient denies symptoms of acute dental infection. She does note some discomfort associated with gingiva of anterior mandibular teeth.
Past Medical History
Past Medical History: Other (Esophageal varices, cirrhosis and decompensated liver failure, anemia, anxiety, depression, SBP, jaundice)
Past Surgical History: Other (EGD)
Alcohol: Former
Tobacco: Former Smoker
Medications / Allergies
Allergies
Allergy/AdvReac Type Severity Reaction Status Date / Time
No Known Allergies Allergy Verified 03/31/23 23:00
Active Medications
Generic Name Dose Route Start Last Admin
Trade Name Freq PRN Reason Stop Dose Admin
Ceftriaxone Sodium 2,000 mg 04/02/23 18:00
Ceftriaxone 2,000 Mg/20 Ml Vial IV
Q24H AMRIT
Folic Acid 1 mg 04/02/23 08:00 04/02/23 08:37
Folic Acid 1 Mg Tablet PO 04/30/23 07:59 1 mg
DAILY AMRIT Administration
Furosemide 40 mg 04/02/23 08:00 04/02/23 09:25
Furosemide 40 Mg Tablet PO 04/30/23 07:59 Not Given
DAILY AMRIT
Lactulose 20 grams 04/01/23 22:00 04/02/23 14:00
Lactulose Solution (20 Grams/30 Ml) 30 Ml Cup PO 04/29/23 21:59 Not Given
QID AMRIT
Oxycodone HCl 10 mg 04/01/23 21:02 04/02/23 15:31
Oxycodone 10 Mg Regular Release Tablet PO 04/15/23 21:01 10 mg
Q6HPRN PRN Administration
severe pain
Pantoprazole Sodium 40 mg 04/01/23 21:02 04/02/23 08:37
Pantoprazole 40 Mg Delayed Release Tablet PO 04/29/23 21:01 40 mg
BID AMRIT Administration
Sodium Chloride 0 flush 04/01/23 22:00
Sodium Chloride 0.9% (Flush) Syringe IV 04/29/23 21:59
PER PROTOCOL AMRIT
Sodium Chloride 2 sprays 04/02/23 02:26 04/02/23 02:41
Sodium Chloride 0.65% Nasal Dow[place] 45 Ml Bottle NASAL 04/30/23 02:25 2 sprays
QIDPRN PRN Administration
nasal dryness/congestion
Spironolactone 150 mg 04/02/23 08:00 04/02/23 09:25
Spironolactone 50 Mg Tablet PO 04/30/23 07:59 Not Given
DAILY AMRIT
Sterile Water 20 ml 04/02/23 18:00
Sterile Water For Injection 20 Ml Vial IV 04/30/23 17:59
Q24H AMRIT
Sucralfate 1 gm 04/01/23 22:00 04/02/23 14:00
Sucralfate (Carafate) 1 Gm/10 Ml Cup PO 04/29/23 21:59 Not Given
QID AMRIT
Thiamine HCl 100 mg 04/02/23 08:00 04/02/23 08:37
Thiamine 100 Mg Tablet PO 04/30/23 07:59 100 mg
DAILY AMRIT Administration
Review of Systems
Constitutional: Reports No Symptoms
Eyes: Reports No Symptoms
ENT: Reports No Symptoms
Cardiovascular: Reports No Symptoms
Respiratory: Reports No Symptoms
Vital Signs
Temp Pulse Resp BP Pulse Ox
36.6 C 88 18 113/69 96
04/02/23 15:00 04/02/23 15:00 04/02/23 15:00 04/02/23 15:00 04/02/23 15:00
Physical Exam
General: Awake, Oriented x 3 and Not in Acute Distress
Extra-oral Exam: Other (No extraoral swelling or LAD. Normal TMJ ROM and SKYLER. )
Intra-oral Exam: Other (Gingival erythema due to palque/calculus. No vestibular swelling. No purulent drainage. Retained roots #6, 19. Fractured #30)
CT Results
No gross evidence for acute odontogenic disease. Several maxillary teeth are missing. No periapical abscesses. Paranasal sinuses and mastoid air cells are clear.
Assessment / Plan
42F with PMH alcohol cirrhosis, decompensated liver failure with ascites, s/p EGD 03/29 with banding x 3 espohageal varices who presented to the ER 03/31 with fever and was called back on 04/01 given blood cultures showed gram negative bacteremia.
Consult for evaluation for dental infection/poor dentition. There is no acute dental infection. She has chronic dental disease and will require at least 3 teeth extracted in the future, however there are other carious teeth that would require
hindu vs. extraction. We discussed that she should see her general dentist for restorative treatment planning prior to extraction of any necessary teeth. We discussed scheduling any necessary extractions in the hospital on an outpatient basis
after evaluation by her general dentist.
- Encouraged oral hygiene maintenance daily
- Recommended follow-up with general dentist and follow-up with me as an outpatient for treatment planning
Data Reviewed
CT Scan: Image personally visualized and interpreted
Labs: Labs Reviewed by me
[2023-04-02] MEDS: STERILE WATER FOR INJECTION 20 ML IV (18:05)
[2023-04-02] MEDS: ROCEPHIN 2000 MG IV (18:05)
[2023-04-02 23:26] VITALS: BP 105/68
[2023-04-03] MEDS: ROXICODONE 10 MG PO ×3 (05:21→22:59)
[2023-04-03 05:42] LABS: Hematocrit 28.2 % (37.0-47.0); Hemoglobin 9.3 g/dL (12.0-16.0); Mean Corpuscular Hgb 29.7 pg (27.0-31.0); Mean Corpuscular Volume 90.1 fL (81.0-99.0); Mean Platelet Volume 11.9 fL (7.4-10.4); Platelet Count 78 10^3/uL (130-400); Red Blood Cell Count 3.13 10^6/uL (4.20-5.40); Red Cell Dist. Width 17.2 % (11.5-14.5); White Blood Cell Count 3.7 10^3/uL (4.8-10.8)
[2023-04-03 05:48] VITALS: BMI 20.6
[2023-04-03 06:05] LABS: ALT (SGPT) 13 U/L (0-35); AST (SGOT) 29 U/L (14-36); Albumin 2.2 g/dl (3.5-5.0); Alkaline Phosphatase 93 U/L (38-126); Blood Urea Nitrogen < 2 mg/dl (7-17); Calcium 7.6 mg/dl (8.4-10.2); Carbon Dioxide 28 mmol/L (22-30); Chloride 100 mmol/L (98-107); Estimated Creatinine Clearance 114 ml/min; Glucose 89 mg/dl (70-99); Potassium 3.3 mmol/L (3.5-5.1); Sodium 133 mmol/L (135-145); Total Bilirubin 1.8 mg/dl (0.2-1.3); Total Protein 5.4 g/dl (6.3-8.2); eGFR > 60.00
[2023-04-03 07:30] VITALS: BP 110/71
[2023-04-03] MEDS: ALDACTONE 150 MG PO (08:37)
[2023-04-03] MEDS: CARAFATE SUSPENSION 1 GM PO ×4 (08:38→21:09)
[2023-04-03] MEDS: DUPHALAC/CHRONULAC 20 GRAMS PO ×4 (08:39→23:03)
[2023-04-03] MEDS: FOLVITE 1 MG PO (08:39)
[2023-04-03] MEDS: PROTONIX 40 MG PO ×2 (08:40→20:07)
[2023-04-03] MEDS: LASIX 40 MG PO (08:40)
[2023-04-03] MEDS: VITAMIN B1 100 MG PO (08:41)
--- NOTE | 2023-04-03 09:34 | W.PN.HOSP.TC ---
Today's Communication/Plan
-
see plan
Assessment / Plan
Assessment / Plan
Ms. Teresa Kelly is a 42 yo woman with hx alcohol cirrhosis, decompensated liver failure with ascites, hx hepatic encephalopathy, chronic pain syndrome, anxiety/depression, recent EGD 03/29 with banding x 3 espohageal varices presents to ER 03/31
with fever called back on 04/01 given blood cultures showed gram negative bacteremia.
CT A/P (IV only contrast)
IMPRESSION:
1. � Findings consistent with known cirrhosis with a cirrhotic liver and a moderate amount of ascites similar to the previous exam. Moderate splenomegaly, mildly increased. Prominent gastroesophageal varices similar to previous. The distal
esophageal wall thickening. Findings consistent with portal hypertension. Portal vein patent.
2. � Wall thickening of the right colon, may represent superimposed colitis in a patient with moderate ascites.
3. � Cholelithiasis.
Gram negative bacteremia
SBP
-presented to ER on 03/31 with fever s/p blood cultures; called back when returned gram neg rods
-s/p recent procedure EGD with varices s/p banding; CT A/P without perforation. GI updated on admission, no need for formal consult at this time
-s/p IR guided para on 04/02 with e/o SBP
-patient with significant gum disease --> OMFS consult appreciated - patient will need follow up outpatient for tooth extraction; no e/o active infection at this time
-ID consult appreciated
-IV Ceftriaxone
-F/U final sensitivities
-patient will need PPx for SBP in future
Alcohol Cirrhosis
Decompensated liver failure with ascites
portal hypertensive gastropathy
Hx esophageal varices
-patient was admitted to from 03/03-03/06 for anemia found to have esophageal varices on EGD s/p banding. during this hospitalization she had paracentesis x 2 (neg SBP). She is s/p repeat EGD on 03/29.
-continue CASH APPLICATION CLERK diuretics
Hyponatremia in setting of ascites - near her baseline.� No specific treatment needed
Hypokalemia
-replete
Anemia from chronic disease
-monitor daily
-monitor for any signs of bleeding
Chronic pain syndrome
cont CASH APPLICATION CLERK PO Dilaudid PRN�
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
Anxiety and Depression
# Severe protein calorie malnutrition
Full code
VCD for DVTp
Anticipated Discharge: 24 - 48 hours
Subjective/Interval History
-
Date of Service: April 03, 2023
some abdominal pain
overall no new complaints from yesterday
Objective Data
-
Labs:
Laboratory Results
04/03/23
05:11
WBC 3.7 L
Hgb 9.3 L
Hct 28.2 L
Plt Count 78 L
Sodium 133 L
Potassium 3.3 L
Chloride 100
Carbon Dioxide 28
BUN < 2 L
Creatinine 0.5 L
Glucose 89
Calcium 7.6 L
Total Bilirubin 1.8 H
AST 29
ALT 13
Alkaline Phosphatase 93
Vital Signs:
Vital Signs
Temp Pulse Resp BP Pulse Ox
98.1 F 96 16 110/71 96
04/03/23 07:30 04/03/23 08:40 04/03/23 07:30 04/03/23 08:40 04/03/23 07:30
I&O
04/02/23 04/03/23 04/04/23
06:59 06:59 06:59
Intake Total 480 / 480 1280 / 1280
Balance 480 / 480 1280 / 1280
Review of Systems
-
History Source: Patient
All other systems: Reviewed and negative
Physical Exam
-
General: Other (frail appearing)
HEENT: PERRLA and Other (poor dental hygiene; )
Respiratory: Clear to Auscultation
Cardiac: Regular Rhythm and S1/S2
GI: Other (distended, + fluid wave )
Musculoskeletal: No Edema
Skin: Warm and Dry; Negative Rash
Neuro: AO x 3
Psych: Calm
Data Reviewed
-
Diagnostic Radiology: Report Reviewed by me
Labs: Labs Reviewed by me
--- NOTE | 2023-04-03 13:08 | CM ---
+ gram neg bacteremia, Oral consult completed for poor dentition, On IV/AB. Discharge plan of care: Home with resumption of [facility] services. Will continue to follow should medical needs change and IV/AB are required after discharge.
[2023-04-03 15:17] VITALS: BP 100/51
[2023-04-03] MEDS: STERILE WATER FOR INJECTION 20 ML IV (17:59)
[2023-04-03] MEDS: ROCEPHIN 2000 MG IV (17:59)
[2023-04-03] MEDS: DUPHALAC/CHRONULAC PO (21:10)
[2023-04-03 23:08] VITALS: BP 99/65
[2023-04-04 05:00] LABS: Hematocrit 30.3 % (37.0-47.0); Hemoglobin 9.8 g/dL (12.0-16.0); Mean Corp Hgb Conc. 32.3 g/dL (33.0-37.0); Mean Corpuscular Hgb 29.2 pg (27.0-31.0); Mean Corpuscular Volume 90.2 fL (81.0-99.0); Mean Platelet Volume 11.7 fL (7.4-10.4); Platelet Count 85 10^3/uL (130-400); Red Blood Cell Count 3.36 10^6/uL (4.20-5.40); Red Cell Dist. Width 17.2 % (11.5-14.5); White Blood Cell Count 3.4 10^3/uL (4.8-10.8)
--- NOTE | 2023-04-04 05:04 | DOWNTIME ---
There was a [employer] [facility] Downtime on 04/04/2023 from 0111 to 04/04/2023 at 0405. Downtime documentation of patient's care, including medication administrations, has been reconciled in the electronic record per guidelines. Refer to the
patient's paper chart under the miscellaneous tab to see printed paper medication records and downtime forms.
[2023-04-04 05:28] LABS: ALT (SGPT) 13 U/L (0-35); AST (SGOT) 30 U/L (14-36); Albumin 2.3 g/dl (3.5-5.0); Alkaline Phosphatase 92 U/L (38-126); Blood Urea Nitrogen 3 mg/dl (7-17); Carbon Dioxide 28 mmol/L (22-30); Chloride 99 mmol/L (98-107); Estimated Creatinine Clearance 114 ml/min; Glucose 89 mg/dl (70-99); Magnesium 1.8 mg/dl (1.6-2.3); Potassium 3.6 mmol/L (3.5-5.1); Sodium 133 mmol/L (135-145); Total Bilirubin 1.6 mg/dl (0.2-1.3); Total Protein 5.5 g/dl (6.3-8.2); eGFR > 60.00
[2023-04-04 07:05] VITALS: BP 90/64
--- NOTE | 2023-04-04 08:38 | W.PN.HOSP.TC ---
Today's Communication/Plan
-
IV Ertapenem
F/U further ID recs
Assessment / Plan
Assessment / Plan
Ms. Teresa Kelly is a 42 yo woman with hx alcohol cirrhosis, decompensated liver failure with ascites, hx hepatic encephalopathy, chronic pain syndrome, anxiety/depression, recent EGD 03/29 with banding x 3 espohageal varices presents to ER 03/31
with fever called back on 04/01 given blood cultures showed gram negative bacteremia.
CT A/P (IV only contrast)
IMPRESSION:
1. � Findings consistent with known cirrhosis with a cirrhotic liver and a moderate amount of ascites similar to the previous exam. Moderate splenomegaly, mildly increased. Prominent gastroesophageal varices similar to previous. The distal
esophageal wall thickening. Findings consistent with portal hypertension. Portal vein patent.
2. � Wall thickening of the right colon, may represent superimposed colitis in a patient with moderate ascites.
3. � Cholelithiasis.
Gram negative bacteremia - ESBL
SBP
-presented to ER on 03/31 with fever s/p blood cultures; called back when returned gram neg rods
-s/p recent procedure EGD with varices s/p banding; CT A/P without perforation. GI updated on admission, no need for formal consult at this time
-s/p IR guided para on 04/02 with e/o SBP
-patient with significant gum disease --> OMFS consult appreciated - patient will need follow up outpatient for tooth extraction; no e/o active infection at this time
-ID consult appreciated
-switched to IV Ertapenem on 04/04 given ESBL
-F/U further ID recs
Alcohol Cirrhosis
Decompensated liver failure with ascites
portal hypertensive gastropathy
Hx esophageal varices
-patient was admitted to from 03/03-03/06 for anemia found to have esophageal varices on EGD s/p banding. during this hospitalization she had paracentesis x 2 (neg SBP). She is s/p repeat EGD on 03/29.
-continue PRODUCTION ASSOCIATE diuretics
Hyponatremia in setting of ascites - near her baseline.� No specific treatment needed
Hypokalemia
-replete
Anemia from chronic disease
-monitor daily
-monitor for any signs of bleeding
Chronic pain syndrome
cont PRODUCTION ASSOCIATE PO Dilaudid PRN�
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
Anxiety and Depression
# Severe protein calorie malnutrition
Full code
VCD for DVTp
Anticipated Discharge: 24 - 48 hours
Subjective/Interval History
-
Date of Service: April 04, 2023
denies feeling worse
having multiple loose BM overnight - told she can skip 4th lactulose
Objective Data
-
Labs:
Laboratory Results
04/04/23
04:41
WBC 3.4 L
Hgb 9.8 L
Hct 30.3 L
Plt Count 85 L
Sodium 133 L
Potassium 3.6
Chloride 99
Carbon Dioxide 28
BUN 3 L
Creatinine 0.6
Glucose 89
Calcium 8.0 L
Total Bilirubin 1.6 H
AST 30
ALT 13
Alkaline Phosphatase 92
Vital Signs:
Vital Signs
Temp Pulse Resp BP Pulse Ox
98.0 F 87 16 90/64 96
04/04/23 07:05 04/04/23 07:05 04/04/23 07:05 04/04/23 07:05 04/04/23 07:05
I&O
04/03/23 04/04/23 04/05/23
06:59 06:59 06:59
Intake Total 1280 / 1280 900 / 900
Balance 1280 / 1280 900 / 900
Review of Systems
-
History Source: Patient
All other systems: Reviewed and negative
Physical Exam
-
General: Other (frail appearing)
HEENT: PERRLA and Other (poor dental hygiene; )
Respiratory: Clear to Auscultation
Cardiac: Regular Rhythm and S1/S2
GI: Other (distended, + fluid wave )
Musculoskeletal: No Edema
Skin: Warm and Dry; Negative Rash
Neuro: AO x 3
Psych: Calm
Data Reviewed
-
Diagnostic Radiology: Report Reviewed by me
Labs: Labs Reviewed by me
[2023-04-04] MEDS: FOLVITE 1 MG PO (08:45)
[2023-04-04] MEDS: DUPHALAC/CHRONULAC 20 GRAMS PO (08:45)
[2023-04-04] MEDS: CARAFATE SUSPENSION 1 GM PO ×4 (08:45→21:44)
[2023-04-04] MEDS: PROTONIX 40 MG PO ×2 (08:46→19:46)
[2023-04-04] MEDS: VITAMIN B1 100 MG PO (08:46)
[2023-04-04] MEDS: ALDACTONE 150 MG PO (08:46)
[2023-04-04] MEDS: LASIX 40 MG PO (08:46)
[2023-04-04] MEDS: ROXICODONE 10 MG PO ×3 (08:52→21:44)
--- NOTE | 2023-04-04 09:13 | PN.CDI ---
CDI
- -
CDI:
Physician Documentation Request
Admit Date: 04/01/23 20:13
Dear Doctor Leobardo,
Please review the following and provide your response in the progress notes.
Clinical Indicators:
- 04/04 PN 'Alcohol Cirrhosis...Decompensated liver failure with ascites'
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
Laboratory Tests
04/02/23 04/03/23 04/04/23
05:05 05:11 05:11
WBC 4.0 L 3.7 L 3.4 L
RBC 2.86 L 3.13 L 3.36 L
Plt Count 75 L 78 L 85 L
Please provide a diagnosis for the above lab values that were monitored and treatment rendered:
Pancytopenia
Thrombocytopenia only
Other
Use of terms such as suspected, likely, concern for, or probable (associated with a specific diagnosis that is being evaluated, monitored, or treated as if it exists) are acceptable and can be coded in the inpatient setting, when documented at the
time of discharge.
Thank you,
Jewels Arnold RN
CDI Specialist
Please use your independent medical judgment in providing your response.
--- NOTE | 2023-04-04 09:19 | PN.CDI ---
CDI
- -
CDI:
Physician Documentation Request
Admit Date: 04/01/23 20:13
Dear Doctor Leobardo,
Please review the following and provide your response in the progress notes.
Clinical Indicators:
- 04/04 PN 'Chronic pain syndrome...cont WORK STATION SUPPORT SPECIALIST PO Dilaudid PRN'
- 04/01-04/04 10mg Oxycodone given x 8
If possible, please provide further specificity as outlined below:
Opioid dependence
Opioid use with or without dependence
Other
Use of terms such as suspected, likely, concern for, or probable (associated with a specific diagnosis that is being evaluated, monitored, or treated as if it exists) are acceptable and can be coded in the inpatient setting, when documented at the
time of discharge.
Thank you,
Jewels Arnold RN
CDI Specialist
Please use your independent medical judgment in providing your response.
[2023-04-04] MEDS: INVANZ 60 MG IV (10:22)
--- NOTE | 2023-04-04 11:42 | W.PN.ID1 ---
Date of Service
Date of Service: April 04, 2023
Today's Communication
- switch to ertapenem to complete 5 day total course 04/04-04/08
Assessment / Plan
SBP deu to ESBL E coli
Bacteremia - gram negative aerobe
- body fluid consistent with SPB
- repeat blood cultures in progress
- switch to ertapenem to complete 5 day total course 04/04-04/08
- midline
- no need for outpatient labs
- follow up with hepatology
Chief Complaint
-: Other (SBP)
Subjective / Review of Systems
no further fevers
bp stable
isoalte esbl e coli
no complaints
Vital Signs / Physical Exam
Vital Signs
Vital Signs
Temp Pulse Resp BP Pulse Ox
98.0 F 87 16 90/64 96
04/04/23 07:05 04/04/23 08:46 04/04/23 07:05 04/04/23 08:46 04/04/23 07:05
Physical Exam
Constitutional: No Acute Distress
Cardiovascular: Regular Rate
Pulmonary: Symmetric and Non Labored
Gastrointestinal: Non Distended
Skin: Warm and Dry; Negative Rash or Jaundice
Neurological: Awake
Objective Data
Lab Data
Lab Results
04/04/23 04:41
04/04/23 04:41
PT 22.3 Sec (11.4-14.6) H 04/01/23 18:31
INR 1.97 04/01/23 18:31
Estimated Creat Clear 114 ml/min 04/04/23 04:41
Total Bilirubin 1.6 mg/dl (0.2-1.3) H 04/04/23 04:41
AST 30 U/L (14-36) 04/04/23 04:41
ALT 13 U/L (0-35) 04/04/23 04:41
Alkaline Phosphatase 92 U/L (38-126) 04/04/23 04:41
Most recent labs reviewed.
Micro Results:
04/02/23 14:34 Body Fluid Culture - Preliminary
Peritoneal Fluid No Growth After 48 Hours
Gram Stain - Preliminary
04/01/23 19:30 Blood Culture - Preliminary
Blood/Venous No Growth in 48 hours- Final report to follow
04/01/23 18:31 Blood Culture - Preliminary
Blood/Venous No Growth in 48 hours- Final report to follow
Care Review
Plan reviewed with: Physician (Dr Booth - luiz)
[2023-04-04] MEDS: DUPHALAC/CHRONULAC PO ×3 (12:14→21:44)
[2023-04-04 15:00] VITALS: BP 97/67
--- NOTE | 2023-04-04 15:49 | CM ---
Patient will require IV/AB at home x 4 additional days. [facility] notified and can accept patient for services which will begin on ,
04/05/23. Patient to be discharged in AM and [facility] will deliver medication between 11:00AM -1:00 PM. Thereafter, [facility] RAPHAEL will viist patient and educate and train on daily IV/AB dosing. Updated records forwarded to [facility] and Roseanne
[email or web address]. , patient, team aware.
[2023-04-04 23:32] VITALS: BP 121/60
[2023-04-05] MEDS: ROXICODONE 10 MG PO (05:01)
[2023-04-05 05:12] LABS: Hematocrit 26.9 % (37.0-47.0); Hemoglobin 8.8 g/dL (12.0-16.0); Mean Corp Hgb Conc. 32.7 g/dL (33.0-37.0); Mean Corpuscular Hgb 29.1 pg (27.0-31.0); Mean Corpuscular Volume 89.1 fL (81.0-99.0); Mean Platelet Volume 12.1 fL (7.4-10.4); Platelet Count 89 10^3/uL (130-400); Red Blood Cell Count 3.02 10^6/uL (4.20-5.40); Red Cell Dist. Width 17.2 % (11.5-14.5); White Blood Cell Count 2.7 10^3/uL (4.8-10.8)
[2023-04-05 05:36] LABS: ALT (SGPT) 12 U/L (0-35); AST (SGOT) 36 U/L (14-36); Albumin 2.2 g/dl (3.5-5.0); Alkaline Phosphatase 91 U/L (38-126); Blood Urea Nitrogen 4 mg/dl (7-17); Calcium 7.9 mg/dl (8.4-10.2); Carbon Dioxide 26 mmol/L (22-30); Chloride 102 mmol/L (98-107); Estimated Creatinine Clearance 114 ml/min; Glucose 89 mg/dl (70-99); Potassium 3.8 mmol/L (3.5-5.1); Sodium 130 mmol/L (135-145); Total Bilirubin 1.3 mg/dl (0.2-1.3); Total Protein 5.3 g/dl (6.3-8.2); eGFR > 60.00
--- NOTE | 2023-04-05 07:34 | W.PN.HOSP.TC ---
Addendum entered and electronically signed by Ana Booth MD 04/05/23 08:50:
Severe protein calorie malnutrition
-appreciate dietary
Original Note:
Today's Communication/Plan
-
OK for DC today
Assessment / Plan
Assessment / Plan
Ms. Teresa Kelly is a 42 yo woman with hx alcohol cirrhosis, decompensated liver failure with ascites, hx hepatic encephalopathy, chronic pain syndrome, anxiety/depression, recent EGD 03/29 with banding x 3 espohageal varices presents to ER 03/31
with fever called back on 04/01 given blood cultures showed gram negative bacteremia.
CT A/P (IV only contrast)
IMPRESSION:
1. � Findings consistent with known cirrhosis with a cirrhotic liver and a moderate amount of ascites similar to the previous exam. Moderate splenomegaly, mildly increased. Prominent gastroesophageal varices similar to previous. The distal
esophageal wall thickening. Findings consistent with portal hypertension. Portal vein patent.
2. � Wall thickening of the right colon, may represent superimposed colitis in a patient with moderate ascites.
3. � Cholelithiasis.
Gram negative bacteremia - ESBL
SBP
-presented to ER on 03/31 with fever s/p blood cultures; called back when returned gram neg rods
-s/p recent procedure EGD with varices s/p banding; CT A/P without perforation. GI updated on admission, no need for formal consult at this time
-s/p IR guided para on 04/02 with e/o SBP
-patient with significant gum disease --> OMFS consult appreciated - patient will need follow up outpatient for tooth extraction; no e/o active infection at this time
-ID consult appreciated
-switched to IV Ertapenem on 04/04 given ESBL --> DC with set up of outpatient infusion today she is s/p mid-line
-there is resistance to bactrim and fluoroquinolone therefore patient unable to start PPx, ID aware
Alcohol Cirrhosis
Decompensated liver failure with ascites
portal hypertensive gastropathy
Hx esophageal varices
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
-patient was admitted to from 03/03-03/06 for anemia found to have esophageal varices on EGD s/p banding. during this hospitalization she had paracentesis x 2 (neg SBP). She is s/p repeat EGD on 03/29.
-continue HYDROCRANE OPERATOR diuretics
Hyponatremia in setting of ascites - near her baseline.� No specific treatment needed
Hypokalemia
-replete
Anemia from chronic disease
-monitor daily
-monitor for any signs of bleeding
Chronic pain syndrome
OPiate dependence
cont HYDROCRANE OPERATOR PO Dilaudid PRN�
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
Anxiety and Depression
# Severe protein calorie malnutrition
Full code
VCD for DVTp
Anticipated Discharge: Today
Subjective/Interval History
-
Date of Service: April 05, 2023
just waking up
no significant pain
Objective Data
-
Labs:
Laboratory Results
04/05/23
04:42
WBC 2.7 L
Hgb 8.8 L
Hct 26.9 L
Plt Count 89 L
Sodium 130 L
Potassium 3.8
Chloride 102
Carbon Dioxide 26
BUN 4 L
Creatinine 0.5 L
Glucose 89
Calcium 7.9 L
Total Bilirubin 1.3
AST 36
ALT 12
Alkaline Phosphatase 91
Vital Signs:
Vital Signs
Temp Pulse Resp BP Pulse Ox
98.5 F 83 18 121/60 97
04/04/23 23:32 04/04/23 23:32 04/04/23 23:32 04/04/23 23:32 04/04/23 23:32
I&O
04/04/23 04/05/2324
06:59 06:59 06:59
Intake Total 900 / 900 2580 / 2580
Balance 900 / 900 2580 / 2580
Review of Systems
-
History Source: Patient
All other systems: Reviewed and negative
Physical Exam
-
General: Other (frail appearing)
HEENT: PERRLA and Other (poor dental hygiene; )
Respiratory: Clear to Auscultation
Cardiac: Regular Rhythm and S1/S2
GI: Other (distended, + fluid wave )
Musculoskeletal: No Edema
Skin: Warm and Dry; Negative Rash
Neuro: AO x 3
Psych: Calm
Data Reviewed
-
Diagnostic Radiology: Report Reviewed by me
Labs: Labs Reviewed by me
[2023-04-05 07:39] VITALS: BP 103/62
--- NOTE | 2023-04-05 07:40 | W.DS.TRANS ---
DC Summary - Team Coordinator
-
Discharge Instructions:
Discharge Diagnosis/Procedures extended spectrum beta lactamase (ESBL)
Escherichia Coli (E. Coli) bacteremia and
spontaneous bacterial peritonitis (SBP)
Diet 2 Gram Sodium
Activity As tolerated
Driving Restrictions As prior to admission
Bathing Restrictions None
Other Services VN
Instructions:
Stand-Alone Forms:
Changes to Home Medications: Yes
Discharge Medications:
DC Medications w/original date entered in [employer] Scheduling
thiamine HCl (vitamin B1) 100 mg tablet 100 mg PO DAILY #0 tabs 02/27/23
folic acid 1 mg tablet 1 mg PO DAILY Supplement 03/04/23
furosemide 40 mg tablet 40 mg PO DAILY #30 tabs 03/06/23
lactulose 20 gram/30 mL oral solution 20 g (30 mL) PO QID #2,880 mL 03/06/23
pantoprazole 40 mg tablet,delayed release 40 mg PO BID #60 tabs 03/06/23
oxycodone 10 mg tablet 10 mg PO Q6H PRN severe pain 03/26/23
spironolactone 100 mg tablet 100 mg PO DAILY Fluid Retention/Swelling 04/01/23
spironolactone 50 mg tablet 50 mg PO DAILY Fluid Retention/Swelling 04/01/23
sucralfate 100 mg/mL oral suspension 10 ml PO QID Gastrointestinal Issue 04/01/23
Ertapenem [Invanz] 1,000 mg 120 mls/hr IV Q24H 04/04/23
Home Medication Changes
addition of Ertapenem
Pending Results: No
[2023-04-05] MEDS: PROTONIX 40 MG PO (08:02)
[2023-04-05] MEDS: ALDACTONE 150 MG PO (08:02)
[2023-04-05] MEDS: CARAFATE SUSPENSION 1 GM PO (08:02)
[2023-04-05] MEDS: FOLVITE 1 MG PO (08:02)
[2023-04-05] MEDS: DUPHALAC/CHRONULAC PO ×2 (08:02→08:06)
[2023-04-05] MEDS: VITAMIN B1 100 MG PO (08:02)
[2023-04-05] MEDS: LASIX 40 MG PO (08:02)
--- NOTE | 2023-04-05 08:38 | PN.CDI ---
CDI
- -
CDI:
Physician Documentation Request
Admit Date: 04/01/23 20:13
Dear Doctor Leobardo,
Please review the following and provide your response in the progress notes.
The purpose of this query is not to question medical judgement, but to ensure the accuracy of the conditions reported for your patient.
Diagnosis:
The diagnosis of severe protein calorie malnutrition is documented in the record on 04/05 PN.
There is either a lack of clinical support for this condition in the current medical record, or there is a lack of recognized standard criteria to support the condition.
Clinical indicators:
- 04/05 PN 'Severe protein calorie malnutrition'
- 04/04 Tailor'S Aide 'no weight loss x 3 months...no wounds noted...>50% meal completions per chart'
The request is for one of the following:
- Indicate if this is in lieu of what may be considered standard criteria, and/or support why the standard criteria may not be present for this patient.
- Severe protein calorie malnutrition remains a known or suspected condition for this patient and is further supported by
- Severe protein calorie malnutrition has been ruled out
- Other (please specify)
Use of terms such as suspected, likely, concern for, or probable (associated with a specific diagnosis that is being evaluated, monitored, or treated as if it exists) are acceptable and can be coded in the inpatient setting, when documented at the
time of discharge.
Thank you,
Jewels Arnold RN
CDI Specialist
Please use your independent medical judgment in providing your response.
--- NOTE | 2023-04-05 10:42 | CM ---
Patient has been medically cleared for discharge to home with [facility] and [facility]. Patient has arranged transportation.
--- NOTE | 2023-04-05 10:42 | PTCARENOTE ---
Patient discharged home with VN - L midline in place for IV abx, patient to receive today's dose of Invanz with VN at home later in afternoon. This RN reviewed discharge instructions with patient and patient's family member, both verbalized
understanding. Patient stated she thinks she is low on protonix and oxycodone prescriptions at home; MD made aware, protonix script sent to pharmacy, patient told to f/u with PCP regarding oxycodone prescription. Patient taken down to main [email or web address] via
staff escort and wheelchair, patient states she has portable O2 in car and is able to walk to vehicle from main [email or web address].
--- NOTE | 2023-04-05 11:40 | W.DCSUMMARY ---
Discharge Summary
Discharge Data
Date of Admission: 04/01/23
Date of Discharge: 04/05/23
-
Pending Results: No
Hospital Course
Discharging Physician : Dr. Ana Booth
Disposition : Home
Primary care physician : Dr. Marah Machado
Principal Discharge diagnosis : extended spectrum beta lactamase (ESBL) Escherichia Coli (E. Coli) bacteremia and spontaneous bacterial peritonitis (SBP)
Hospital Course :
Ms. Teresa Sanches is a 42 yo woman with hx alcoholic cirrhosis with decompensated liver failure and ascites, esophageal varices s/p recent banding presents to the ER with fever called back the following day as blood cultures grew gram negative
rods. CT on first ER visit with moderate amount of ascites, no e/o acute infection. She was admitted to medicine, started on IV antibiotics. IR consulted for paracentesis which revealed e/o SBP. Final culture returned as ESBL. ID consulted and
patient's antibiotics transitioned to IV Ertapenem. Outpatient infusion set up for patient and she is discharged on course of IV Ertapenem. She will follow up with her PCP and ID. She is also told to follow closely with her Variety Lathe Operator.
Of note, OMFS consulted in-house given gram negative bacteremia and dental disease. CT facial bones without e/o infection. She will follow up with her dentist as outpatient as likely needs tooth extraction.
Time spent on discharge was 35 minutes.
Important imaging findings :
CT A/P 04/01/23
IMPRESSION:
1. � Findings consistent with known cirrhosis with a cirrhotic liver and a moderate amount of ascites similar to the previous exam. Moderate splenomegaly, mildly increased. Prominent gastroesophageal varices similar to previous. The distal
esophageal wall thickening. Findings consistent with portal hypertension. Portal vein patent.
2. � Wall thickening of the right colon, may represent superimposed colitis in a patient with moderate ascites.
3. � Cholelithiasis.
FACIL BONES CT 04/03/23
IMPRESSION:
No gross evidence for acute odontogenic disease. Several maxillary teeth are missing. No periapical abscesses.
Paranasal sinuses and mastoid air cells are clear.
Procedure findings :
Discharge Plan
-
Patient Disposition: Home (Routine Discharge)
Discharge Diagnosis/Procedures: extended spectrum beta lactamase (ESBL) Escherichia Coli (E. Coli) bacteremia and spontaneous bacterial peritonitis (SBP)
Diet: 2 Gram Sodium
Activity: As tolerated
Driving Restrictions: As prior to admission
Bathing Restrictions: None
Other Services: VN
Activity Restrictions/Additional Instructions:
follow up with your Variety Lathe Operator at next available appointment
Referrals:
Marah Machado CRNP [Family Provider] - in less than 1 week
Mel Jimenez DDS [Active] -
Hermelinda Zacarias MD [Active] - in one week
Prescriptions:
New
Ertapenem [Invanz] 1000 MG
0.9% Sodium Chloride [Nss] 50 ML
120 mls/hr IV Q24H
Ordered By: Ana Booth MD
Last Taken: 04/04/23 10:22 60 mls
oxycodone 10 mg Tablet
10 mg PO Q6HPRN PRN (Reason: severe pain) Qty: 1 0RF
Continued
thiamine HCl (vitamin B1) 100 mg Tablet
100 mg PO DAILY Qty: 0 0RF
folic acid 1 mg tablet
1 mg PO DAILY
furosemide 40 MG tablet
40 mg PO DAILY Qty: 30 0RF
lactulose 20 gram/30 mL Solution
20 g PO QID Qty: 2880 0RF
sucralfate 100 mg/mL Suspension
10 ml PO QID
spironolactone 100 mg Tablet
100 mg PO DAILY
Rx Instructions:
04/01/2023, take with 50 mg for a total of 150 mg.
spironolactone 50 MG tablet
50 mg PO DAILY
Rx Instructions:
04/01/2023, take with 100 mg for a total of 150 mg.
pantoprazole 40 mg Tablet,Delayed Release (Dr/Ec)
40 mg PO BID Qty: 60 0RF
Discontinued
oxycodone 10 mg Tablet
10 mg PO Q6H PRN (Reason: severe pain)
Patient Comments:
04/01/2023, pt. filled this med. on 03/29/2023 for 28 tablets according to PDMP.
Discharge Orders:
Discharge Patient (As Directed); Ordered 04/05/23
Ordered By: Ana Booth
Discharge Date and Time
Discharge Date/Time: 04/05/23 11:07
== END 2023-04-05 11:07 | disposition home health service (06) | DRG 871 ==
LOC: 2 NORTH 20:13
PROVIDERS: Physician Assistant; Radiology Vascular & Interventional Radiology; ADMITTING PHYSICIAN Internal Medicine; ATTENDING PHYSICIAN Student in an Organized Health Care Education/Training Program; CONSULT PHYSICIAN Dentist Oral and Maxillofacial Surgery; CONSULT PHYSICIAN Student in an Organized Health Care Education/Training Program; EMERGENCY PHYSICIAN Emergency Medicine; FAMILY PHYSICIAN Registered Nurse
PROC: 0W9G3ZZ Drainage of Peritoneal Cavity, Percutaneous Approach (ICD-10-PCS; 2023-04-02)
DX: R78.81 Bacteremia (principal); E43 Unspecified severe protein-calorie malnutrition; K65.2 Spontaneous bacterial peritonitis; E87.1 Hypo-osmolality and hyponatremia; I85.10 Secondary esophageal varices without bleeding; K76.6 Portal hypertension; D61.818 Other pancytopenia; F11.20 Opioid dependence, uncomplicated; Z87.891 Personal history of nicotine dependence; D63.8 Anemia in other chronic diseases classified elsewhere; B96.89 Other specified bacterial agents as the cause of diseases classified elsewhere; K70.31 Alcoholic cirrhosis of liver with ascites; E87.6 Hypokalemia; D69.59 Other secondary thrombocytopenia; F41.9 Anxiety disorder, unspecified; F32.A Depression, unspecified; K70.40 Alcoholic hepatic failure without coma; K76.82 Hepatic encephalopathy; K08.9 Disorder of teeth and supporting structures, unspecified; R16.1 Splenomegaly, not elsewhere classified; I86.4 Gastric varices; K80.20 Calculus of gallbladder without cholecystitis without obstruction; B96.20 Unspecified Escherichia coli [E. coli] as the cause of diseases classified elsewhere; Z68.20 Body mass index [BMI] 20.0-20.9, adult; K31.89 Other diseases of stomach and duodenum
CPT/HCPCS: 49083; 70487; 74177; 80048; 80053; 81003; 81015; 83615; 83690; 83735; 84157; 84703; 85025; 85027; 85610; 87015; 87040; 87070; 87077; 87186; 87205; 87502; 87811; 89051; 96365; 99284; 99285; 99406; J1335; Q9967

== ENCOUNTER → 2023-04-16 08:20 | Outpatient (REF) | payer MEDICARE, OTHER, SELFPAY | LOC: RADI 08:20 | PROVIDERS: ATTENDING PHYSICIAN Internal Medicine Gastroenterology; FAMILY PHYSICIAN Physician Assistant Medical | DX: R18.8 Other ascites (principal); Z53.8 Procedure and treatment not carried out for other reasons | CPT/HCPCS: 76705 ==

== ENCOUNTER 2023-05-01 06:10 | Day surgery (SDC) | payer MEDICARE, SELFPAY ==
[2023-05-01 08:35] VITALS: BMI 19.4
[2023-05-01 08:40] VITALS: BP 109/73
[2023-05-01 09:05] VITALS: BMI 19.4
[2023-05-01 10:15] VITALS: BP 125/88
[2023-05-01 10:30] VITALS: BP 122/83
== END 2023-05-01 11:10 | disposition home or self-care (01) ==
LOC: SDS 06:10
PROVIDERS: ATTENDING PHYSICIAN Internal Medicine Gastroenterology
DX: I85.01 Esophageal varices with bleeding (principal); K22.89 Other specified disease of esophagus; K31.89 Other diseases of stomach and duodenum
CPT/HCPCS: 43244

== ENCOUNTER → 2023-05-31 14:02 | Outpatient (REF) | payer MEDICARE, SELFPAY ==
[2023-05-31 15:21] LABS: Hematocrit 30.4 % (37.0-47.0); Mean Corp Hgb Conc. 32.9 g/dL (33.0-37.0); Mean Corpuscular Hgb 26.9 pg (27.0-31.0); Mean Corpuscular Volume 81.7 fL (81.0-99.0); Mean Platelet Volume 12.1 fL (7.4-10.4); Platelet Count 86 10^3/uL (130-400); Red Blood Cell Count 3.72 10^6/uL (4.20-5.40); White Blood Cell Count 3.6 10^3/uL (4.8-10.8)
[2023-05-31 15:22] LABS: INR 1.53; PT 18.5 Sec (11.4-14.6)
[2023-05-31 15:23] LABS: APTT 35.2 Sec (23.4-35.0)
[2023-05-31 15:50] LABS: ALT (SGPT) 18 U/L (0-35); AST (SGOT) 44 U/L (14-36); Albumin 3.3 g/dl (3.5-5.0); Alkaline Phosphatase 92 U/L (38-126); Blood Urea Nitrogen 6 mg/dl (7-17); Calcium 8.7 mg/dl (8.4-10.2); Carbon Dioxide 25 mmol/L (22-30); Chloride 101 mmol/L (98-107); Direct Bilirubin 0.7 mg/dl (0.0-0.4); Glucose 81 mg/dl (70-99); Potassium 3.7 mmol/L (3.5-5.1); Sodium 135 mmol/L (135-145); Total Bilirubin 1.8 mg/dl (0.2-1.3); Total Protein 6.6 g/dl (6.3-8.2); eGFR > 60.00
[2023-05-31 18:47] LABS: AFP Male/Tumor Marker 2.11 ng/ml
== END ==
LOC: REG 14:02
PROVIDERS: ATTENDING PHYSICIAN Nurse Practitioner Family; FAMILY PHYSICIAN Physician Assistant Medical
DX: K70.31 Alcoholic cirrhosis of liver with ascites (principal)
CPT/HCPCS: 36415; 80053; 82105; 82248; 85027; 85610; 85730

== ENCOUNTER 2023-06-05 06:28 | Day surgery (SDC) | payer MEDICARE, OTHER, SELFPAY ==
[2023-06-05 13:44] VITALS: BMI 18.6
[2023-06-05 13:52] VITALS: BMI 18.6
[2023-06-05 13:53] VITALS: BP 108/63
[2023-06-05 13:56] VITALS: BP 108/63
--- NOTE | 2023-06-05 14:04 | PTCARENOTE ---
Patient is on 2 L O2 at home. Patient put on 2 l o2 NC and Dr. Nathan made aware.
--- NOTE | 2023-06-05 14:24 | PTCARENOTE ---
Report given to Jasmina GALVAN.
[2023-06-05 15:15] VITALS: BP 99/66
[2023-06-05 15:30] VITALS: BP 99/65
[2023-06-05 15:45] VITALS: BP 100/66
== END 2023-06-05 16:00 | disposition home or self-care (01) ==
LOC: SDS 06:28
PROVIDERS: ATTENDING PHYSICIAN Internal Medicine Gastroenterology
DX: I85.11 Secondary esophageal varices with bleeding (principal); K22.89 Other specified disease of esophagus
CPT/HCPCS: 43235

== ENCOUNTER → 2023-06-13 | Outpatient (REF) | payer MEDICARE, OTHER, SELFPAY | LOC: DHSLP | PROVIDERS: ATTENDING PHYSICIAN Internal Medicine; FAMILY PHYSICIAN Registered Nurse | DX: G47.33 Obstructive sleep apnea (adult) (pediatric) (principal) | CPT/HCPCS: 95810 ==

== ENCOUNTER → 2023-06-28 13:46 | Outpatient (REF) | payer MEDICARE, OTHER, SELFPAY ==
[2023-06-28 16:09] LABS: Hematocrit 32.5 % (37.0-47.0); Hemoglobin 10.6 g/dL (12.0-16.0); Mean Corp Hgb Conc. 32.6 g/dL (33.0-37.0); Mean Corpuscular Hgb 26.4 pg (27.0-31.0); Mean Corpuscular Volume 80.8 fL (81.0-99.0); Platelet Count 88 10^3/uL (130-400); Red Blood Cell Count 4.02 10^6/uL (4.20-5.40); White Blood Cell Count 3.6 10^3/uL (4.8-10.8)
[2023-06-28 16:19] LABS: INR 1.47; PT 17.9 Sec (11.4-14.6)
[2023-06-28 16:35] LABS: ALT (SGPT) 17 U/L (0-35); AST (SGOT) 38 U/L (14-36); Albumin 3.6 g/dl (3.5-5.0); Alkaline Phosphatase 81 U/L (38-126); Blood Urea Nitrogen 8 mg/dl (7-17); Carbon Dioxide 23 mmol/L (22-30); Chloride 103 mmol/L (98-107); Direct Bilirubin 0.6 mg/dl (0.0-0.4); Glucose 83 mg/dl (70-99); Potassium 3.6 mmol/L (3.5-5.1); Sodium 136 mmol/L (135-145); Total Bilirubin 1.4 mg/dl (0.2-1.3); eGFR > 60.00
== END ==
LOC: HWLAB 13:46
PROVIDERS: ATTENDING PHYSICIAN Internal Medicine Gastroenterology; FAMILY PHYSICIAN Physician Assistant Medical; REFERRING PHYSICIAN Internal Medicine
DX: J90 Pleural effusion, not elsewhere classified (principal); K70.31 Alcoholic cirrhosis of liver with ascites
CPT/HCPCS: 36415; 71046; 80048; 80076; 85027; 85610

== ENCOUNTER → 2023-07-03 13:00 | Outpatient (REF) | payer MEDICARE, OTHER, SELFPAY | LOC: HWWDC 13:00 | PROVIDERS: ATTENDING PHYSICIAN Physician Assistant Medical | DX: Z12.31 Encounter for screening mammogram for malignant neoplasm of breast (principal) | CPT/HCPCS: 77063; 77067 ==

== ENCOUNTER 2023-07-12 09:00 | Outpatient (RCR) | payer MEDICARE, OTHER, SELFPAY | END 2023-07-12 23:59 | disposition home or self-care (01) | LOC: PURB 09:00 | PROVIDERS: ATTENDING PHYSICIAN Internal Medicine; FAMILY PHYSICIAN Physician Assistant Medical | DX: R09.02 Hypoxemia (principal); R94.2 Abnormal results of pulmonary function studies; Z87.891 Personal history of nicotine dependence | CPT/HCPCS: G0237 ==

== ENCOUNTER → 2023-07-13 13:45 | Outpatient (REF) | payer MEDICARE, OTHER, SELFPAY | LOC: HWLAB 13:45 | PROVIDERS: ATTENDING PHYSICIAN Internal Medicine Transplant Hepatology; FAMILY PHYSICIAN Physician Assistant Medical | DX: K70.31 Alcoholic cirrhosis of liver with ascites (principal); Z01.818 Encounter for other preprocedural examination; F10.21 Alcohol dependence, in remission | CPT/HCPCS: 36415 ==

== ENCOUNTER 2023-07-24 06:18 | Day surgery (SDC) | payer MEDICARE, OTHER, SELFPAY ==
[2023-07-24 11:01] VITALS: BMI 17.7
[2023-07-24 11:15] VITALS: BP 105/60
[2023-07-24 12:34] VITALS: BP 102/63
[2023-07-24 12:45] VITALS: BP 103/73
[2023-07-24 13:00] VITALS: BP 101/67
== END 2023-07-24 13:32 | disposition home or self-care (01) ==
LOC: SDS 06:18
PROVIDERS: ATTENDING PHYSICIAN Internal Medicine Gastroenterology
DX: I85.00 Esophageal varices without bleeding (principal); K22.89 Other specified disease of esophagus; K31.89 Other diseases of stomach and duodenum
CPT/HCPCS: 43235

== ENCOUNTER 2023-08-07 13:15 | Outpatient (RCR) | payer MEDICARE, OTHER, SELFPAY | END 2023-08-07 23:59 | disposition home or self-care (01) | LOC: PURB 13:15 | PROVIDERS: ATTENDING PHYSICIAN Internal Medicine; FAMILY PHYSICIAN Physician Assistant Medical | DX: J98.4 Other disorders of lung (principal) | CPT/HCPCS: G0239 ==

== ENCOUNTER 2023-08-28 14:45 | Outpatient (RCR) | payer MEDICARE, OTHER, SELFPAY | END 2023-09-12 09:12 | disposition home or self-care (01) | LOC: PURB 14:45 | PROVIDERS: ATTENDING PHYSICIAN Internal Medicine; FAMILY PHYSICIAN Physician Assistant Medical | DX: J98.4 Other disorders of lung (principal) | CPT/HCPCS: G0239 ==

== ENCOUNTER 2023-10-02 14:45 | Outpatient (RCR) | payer MEDICARE, OTHER, SELFPAY | END 2023-10-12 09:05 | disposition home or self-care (01) | LOC: PURB 14:45 | PROVIDERS: ATTENDING PHYSICIAN Internal Medicine; FAMILY PHYSICIAN Physician Assistant Medical | DX: J98.4 Other disorders of lung (principal); Z87.891 Personal history of nicotine dependence | CPT/HCPCS: G0239 ==

== ENCOUNTER 2023-10-26 06:20 | Day surgery (SDC) | payer MEDICARE, OTHER, SELFPAY ==
[2023-10-26 08:26] VITALS: BP 111/79
[2023-10-26 08:37] VITALS: BMI 18.8
[2023-10-26 08:38] VITALS: BMI 18.8
[2023-10-26 10:15] VITALS: BP 104/69
[2023-10-26 10:20] VITALS: BP 104/69
[2023-10-26 10:30] VITALS: BP 98/73
== END 2023-10-26 10:37 | disposition home or self-care (01) ==
LOC: SDS 06:20
PROVIDERS: ATTENDING PHYSICIAN Internal Medicine Gastroenterology
DX: I85.00 Esophageal varices without bleeding (principal); K22.89 Other specified disease of esophagus; T18.2XXA Foreign body in stomach, initial encounter; Y93.89 Activity, other specified; Z53.9 Procedure and treatment not carried out, unspecified reason
CPT/HCPCS: 43235

== ENCOUNTER → 2023-10-31 14:07 | Outpatient (REF) | payer MEDICARE, OTHER, SELFPAY | LOC: HWRAD 14:07 | PROVIDERS: ATTENDING PHYSICIAN Internal Medicine Gastroenterology; FAMILY PHYSICIAN Physician Assistant Medical | DX: K70.31 Alcoholic cirrhosis of liver with ascites (principal) | CPT/HCPCS: 76700 ==

== ENCOUNTER 2023-11-08 14:45 | Outpatient (RCR) | payer MEDICARE, OTHER, SELFPAY | END 2023-11-12 10:06 | disposition home or self-care (01) | LOC: PURB 14:45 | PROVIDERS: ATTENDING PHYSICIAN Internal Medicine; FAMILY PHYSICIAN Physician Assistant Medical | DX: J98.4 Other disorders of lung (principal); R94.2 Abnormal results of pulmonary function studies; R09.02 Hypoxemia; Z87.891 Personal history of nicotine dependence | CPT/HCPCS: G0239 ==

== ENCOUNTER → 2023-11-16 12:04 | Outpatient (REF) | payer MEDICARE, OTHER, SELFPAY ==
[2023-11-16 16:17] LABS: % Basophils 0.6 % (0-2); % Eosinophils 4.8 % (0-6); % Lymphocytes 29.7 % (20.5-51.1); % Monocytes 6.3 % (1.7-9.3); % Neutrophils 58.6 % (42.2-75.2); Absolute Eosinophils 0.2 10^3/uL (0-0.7); Absolute Monocytes 0.2 10^3/uL (0.1-0.6); Hematocrit 42.6 % (37.0-47.0); Hemoglobin 14.3 g/dL (12.0-16.0); Mean Corp Hgb Conc. 33.6 g/dL (33.0-37.0); Mean Corpuscular Hgb 29.7 pg (27.0-31.0); Mean Corpuscular Volume 88.4 fL (81.0-99.0); Mean Platelet Volume 11.7 fL (7.4-10.4); Nucleated Red Blood Cells % 0 %; Platelet Count 64 10^3/uL (130-400); Red Blood Cell Count 4.82 10^6/uL (4.20-5.40); Red Cell Dist. Width 17.4 % (11.5-14.5); White Blood Cell Count 3.3 10^3/uL (4.8-10.8)
[2023-11-16 16:27] LABS: ALT (SGPT) 26 U/L (0-35); AST (SGOT) 41 U/L (14-36); Albumin 3.9 g/dl (3.5-5.0); Alkaline Phosphatase 77 U/L (38-126); Blood Urea Nitrogen 11 mg/dl (7-17); Calcium 9.5 mg/dl (8.4-10.2); Carbon Dioxide 25 mmol/L (22-30); Chloride 104 mmol/L (98-107); Direct Bilirubin 0.5 mg/dl (0.0-0.4); Glucose 90 mg/dl (70-99); Potassium 3.3 mmol/L (3.5-5.1); Sodium 141 mmol/L (135-145); Total Bilirubin 1.9 mg/dl (0.2-1.3); Total Protein 6.5 g/dl (6.3-8.2); eGFR > 60.00
[2023-11-16 16:35] LABS: INR 1.44; PT 17.4 Sec (11.4-14.6)
[2023-11-16 16:36] LABS: APTT 33.3 Sec (23.4-35.0)
[2023-11-16 16:59] LABS: AFP Male/Tumor Marker 2.42 ng/ml
== END ==
LOC: HWLAB 12:04
PROVIDERS: ATTENDING PHYSICIAN Internal Medicine Gastroenterology; FAMILY PHYSICIAN Physician Assistant Medical
DX: K70.31 Alcoholic cirrhosis of liver with ascites (principal)
CPT/HCPCS: 36415; 80053; 82105; 82248; 85025; 85610; 85730

== ENCOUNTER 2023-12-06 16:03 | Emergency (ER) | payer MEDICARE, OTHER, SELFPAY ==
[2023-12-06 16:04] VITALS: BP 113/76
--- NOTE | 2023-12-06 16:38 | ED.GENMED ---
History of Present Illness
General
Chief Complaint: Skin Problem
Source: patient
Time Seen by Provider: 12/06/23 16:21
History of Present Illness
History of Present Illness:
43-year-old female with past medical history of alcoholic liver cirrhosis, traumatic brain injury, chronic hypoxia requiring 2 L via nasal cannula presenting to the emergency department at [facility] primary care provider after patient was started on
Lamictal about 5 weeks ago for depression who noticed a rash to her right thigh earlier today and states she has some generalized pruritus as well. Patient contacted primary care provider who recommended patient come to the ER for further
evaluation. Patient notes that the Lamictal dose was increased from 25 mg to 50 mg about a week and a half ago. No other medication changes. Denies any fevers or infectious symptoms. No one else at home with similar rash and denies history of
similar rash in the past. Did not take anything for symptoms prior to arrival
Past History
Past History
ED Past Medical History: COPD, Other (ETOH abuse, alcoholic cirrhosis) and Other (TBI)
ED Past Surgical History: Other
Social History
Tobacco: Non-smoker
Alcohol: Former
Drug: None
Personal: Single
Living: with family
Employment: Disabled
Review of Systems
Review of Systems
All Other Systems: ROS reviewed and negative except as documented in HPI and ROS
Phy Exam
Physical Exam
Physical Exam:
GENERAL: Alert , in no apparent distress
EYE: conjunctiva clear
NECK: Supple, no significant adenopathy.
ENT: o/p clr, mmm. no intra-oral lesions/bullae
CARDIAC: Regular rate and rhythm
LUNGS: Clear breath sounds bilaterally, no acute respiratory distress, no wheezes/rales/rhonchi
NEUROLOGICAL: Alert and oriented
SKIN: Warm and dry, skin intact. Multiple small macular erythematous, nontender, somewhat coalesced rash to the right lateral thigh measuring 3-1/2 x 2 cm in circumference. There is also a smaller similar rash to the left posterolateral
buttock/thigh measuring about 1-1/2 x 1 cm. Left upper abd/lower chest has small area of erythema likely from scratching, hive like, no petechiae.
MUSCULOSKELETAL: well perfused.
PSYCH: Normal and appropriate interaction.
Scores
Heart Failure Risk
Heart Failure Risk Score: Not Applicable
Heart Score for Chest Pain Patients
STEMI patient?: Not applicable
Withdrawal Assessment of Alcohol
Withdrawal Assessment Completed?: Not applicable
Course
Orders/Labs/Results
Orders:
Orders
12/06/23 16:51
Complete Blood Count/With Diff Urgent
Comprehensive Metabolic Panel Urgent
Abnormal Lab Results
12/06/23
16:51
WBC 3.5 L 10^3/uL
(4.8-10.8)
RBC 4.05 L 10^6/uL
(4.20-5.40)
Hct 35.2 L %
(37.0-47.0)
RDW 17.6 H %
(11.5-14.5)
Plt Count 62 L 10^3/uL
(130-400)
MPV 11.1 H fL
(7.4-10.4)
Absolute Lymphs (auto) 0.8 L 10^3/uL
(1.2-3.4)
Monocytes % 9.6 H %
(1.7-9.3)
Glucose 104 H mg/dl
(70-99)
Total Bilirubin 2.3 H mg/dl
(0.2-1.3)
AST 38 H U/L
(14-36)
Total Protein 5.6 L g/dl
(6.3-8.2)
Albumin 3.1 L g/dl
(3.5-5.0)
12/06/23 16:51
12/06/23 16:51
Vital Signs
Initial and Last Documented VS:
Initial Vital Signs
Temp Pulse Resp BP Pulse Ox
99.0 F 107 20 113/76 90
12/06/23 16:04 12/06/23 16:04 12/06/23 16:04 12/06/23 16:04 12/06/23 16:04
Last Documented Vital Signs
Temp Pulse Resp BP Pulse Ox
99.0 F 90 18 113/76 94
12/06/23 16:04 12/06/23 18:11 12/06/23 18:11 12/06/23 16:04 12/06/23 18:11
MDM/Problems Addressed
Differential Diagnosis Includes:
SJS, TEN, DRESS, contact dermatitis
MDM/Problems Addressed:
43-year-old female presenting to the emergency department for evaluation of a rash to her right thigh, also found to have similar rash to the left thigh in the setting of recently starting Lamictal about 5 weeks ago, increased dose a week and a half
ago. Patient without fevers or infectious symptoms. No intraoral lesions. No pain associated. Hemodynamically. Patient with complex medical history due to previous alcohol use. Will check labs and monitor. Disposition pending
Chronic conditions affecting care: Other (previous ETOH abuse, liver disease)
*Pulse Oximetry
Patient hypoxic: no
*Critical Care Note
Total Time (30-74mins, 75-104mins- exclusive of procedures): Not Applicable
Data Reviewed
Review of Other/Old Records Reveals: Labs
Source: patient
Patient Management
Discussion with other providers: PCP
Escalation/DeEscalation of care consider admission/obs:
Patient's labs are right around her baseline. She has a chronic leukopenia and thrombocytopenia which is not much different today. Total bilirubin is also around the same. I suspect a mild drug rash/reaction is the most likely diagnosis. There
is no mucosal involved. We did discuss symptoms to look for for any signs of Jaleel Yovani syndrome and at this time patient feels comfortable being discharged home with close return precautions. I also notified patient's primary care provider of
this workup and will follow-up with the patient. Patient to discontinue her Lamictal.
ED Attending Note
-
Portions of this chart may have been created with voice recognition software.� Occasional wrong word or��sound alike� substitutions may have occurred due to the inherent limitations of voice recognition software.
Discharge Plan
Departure
Patient Disposition: Home (Routine Discharge)
Date of Disposition: 12/06/23
Time of Disposition: 17:54
Patient with high blood pressure during this ER visit?: No
Discharge Problem:
Drug reaction
Instructions: Skin Rash ED
Prescriptions:
New
hydrocortisone 2.5 % cream
1 applic topical BID 7 Days Qty: 30 0RF
No Action
thiamine HCl (vitamin B1) 100 mg Tablet
100 mg PO DAILY Qty: 0 0RF
folic acid 1 mg tablet
800 mcg PO DAILY
furosemide 40 MG tablet
40 mg PO DAILY Qty: 30 0RF
sucralfate 100 mg/mL Suspension
10 ml PO QID PRN (Reason: Gastrointestinal Issue)
spironolactone 100 mg Tablet
150 mg PO DAILY
Rx Instructions:
04/01/2023, take with 50 mg for a total of 150 mg.
oxycodone 10 mg Tablet
10 mg PO Q6HPRN PRN (Reason: severe pain) Qty: 1 0RF
pantoprazole 40 mg tablet,delayed release (DR/EC)
40 mg PO DAILY
lactulose 20 gram/30 mL solution
20 g PO BID
Xifaxan 550 mg Tablet
550 mg PO BID
Vitamin D3
1 tab PO DAILY
multivitamin [One A Day Vitamin] Tablet
1 tab PO DAILY
haloperidol [Haldol] 2 mg Tablet
2 mg PO DAILY
Referrals:
Brigid Rivera PA [Family Provider] -
Interventions
Interventions:
*Risk Screen - Suicide Last Done: 12/06/23 16:04
*General Assessment Last Done: 12/06/23 16:04
*Neglect/Abuse Screening Last Done: 12/06/23 16:04
*Nursing Disposition Last Done: 12/06/23 18:13
ED-Skin Assessment Last Done: 12/06/23 17:01
Discharge Date and Time
Discharge Date/Time: 12/06/23 18:13
Print Language: BENGALI
[2023-12-06 17:11] LABS: % Basophils 1.4 % (0-2); % Eosinophils 5.7 % (0-6); % Immature Granulocytes 0.3 % (0-0.5); % Lymphocytes 22.1 % (20.5-51.1); % Monocytes 9.6 % (1.7-9.3); % Neutrophils 60.9 % (42.2-75.2); Absolute Basophils 0.1 10^3/uL (0-0.2); Absolute Eosinophils 0.2 10^3/uL (0-0.7); Absolute Lymphocytes 0.8 10^3/uL (1.2-3.4); Absolute Monocytes 0.3 10^3/uL (0.1-0.6); Absolute Neutrophils 2.2 10^3/uL (1.4-6.5); Hematocrit 35.2 % (37.0-47.0); Hemoglobin 12.4 g/dL (12.0-16.0); Mean Corp Hgb Conc. 35.2 g/dL (33.0-37.0); Mean Corpuscular Hgb 30.6 pg (27.0-31.0); Mean Corpuscular Volume 86.9 fL (81.0-99.0); Mean Platelet Volume 11.1 fL (7.4-10.4); Nucleated Red Blood Cells % 0 %; Platelet Count 62 10^3/uL (130-400); Red Blood Cell Count 4.05 10^6/uL (4.20-5.40); Red Cell Dist. Width 17.6 % (11.5-14.5); White Blood Cell Count 3.5 10^3/uL (4.8-10.8)
[2023-12-06 17:23] LABS: ALT (SGPT) 25 U/L (0-35); AST (SGOT) 38 U/L (14-36); Albumin 3.1 g/dl (3.5-5.0); Alkaline Phosphatase 64 U/L (38-126); Blood Urea Nitrogen 8 mg/dl (7-17); Calcium 8.4 mg/dl (8.4-10.2); Carbon Dioxide 25 mmol/L (22-30); Chloride 101 mmol/L (98-107); Glucose 104 mg/dl (70-99); Potassium 3.6 mmol/L (3.5-5.1); Sodium 136 mmol/L (135-145); Total Bilirubin 2.3 mg/dl (0.2-1.3); Total Protein 5.6 g/dl (6.3-8.2); eGFR > 60.00
== END 2023-12-06 18:13 | disposition home or self-care (01) ==
LOC: EMR 16:03
PROVIDERS: Physician Assistant Medical; EMERGENCY PHYSICIAN Emergency Medicine; FAMILY PHYSICIAN Physician Assistant Medical
DX: L27.0 Generalized skin eruption due to drugs and medicaments taken internally (principal); J44.9 Chronic obstructive pulmonary disease, unspecified; F10.10 Alcohol abuse, uncomplicated; F32.A Depression, unspecified; K70.30 Alcoholic cirrhosis of liver without ascites; Z79.899 Other long term (current) drug therapy; Z87.820 Personal history of traumatic brain injury
CPT/HCPCS: 99283; 80053; 85025

== ENCOUNTER 2023-12-10 22:03 | Emergency (ER) | payer MEDICARE, OTHER, SELFPAY ==
[2023-12-10 22:06] VITALS: BP 115/70
[2023-12-10 22:54] LABS: % Basophils 0.9 % (0-2); % Eosinophils 3.2 % (0-6); % Immature Granulocytes 0.2 % (0-0.5); % Lymphocytes 21.9 % (20.5-51.1); % Monocytes 9.2 % (1.7-9.3); % Neutrophils 64.7 % (42.2-75.2); Absolute Eosinophils 0.1 10^3/uL (0-0.7); Absolute Lymphocytes 0.9 10^3/uL (1.2-3.4); Absolute Monocytes 0.4 10^3/uL (0.1-0.6); Absolute Neutrophils 2.7 10^3/uL (1.4-6.5); Hematocrit 40.6 % (37.0-47.0); Hemoglobin 13.9 g/dL (12.0-16.0); Mean Corp Hgb Conc. 34.1 g/dL (33.0-37.0); Mean Corpuscular Hgb 30.8 pg (27.0-31.0); Mean Corpuscular Volume 90.2 fL (81.0-99.0); Mean Platelet Volume 10.9 fL (7.4-10.4); Nucleated Red Blood Cells % 0 %; Platelet Count 81 10^3/uL (130-400); Red Blood Cell Count 4.39 10^6/uL (4.20-5.40); Red Cell Dist. Width 17.9 % (11.5-14.5); White Blood Cell Count 4.2 10^3/uL (4.8-10.8)
[2023-12-10 22:56] LABS: HCG, Serum Qualitative Screen Negative
[2023-12-10 22:59] LABS: ALT (SGPT) 22 U/L (0-35); AST (SGOT) 36 U/L (14-36); Albumin 3.5 g/dl (3.5-5.0); Alkaline Phosphatase 67 U/L (38-126); Blood Urea Nitrogen 12 mg/dl (7-17); Calcium 9.3 mg/dl (8.4-10.2); Carbon Dioxide 24 mmol/L (22-30); Chloride 104 mmol/L (98-107); Glucose 102 mg/dl (70-99); Lipase 87 U/L (23-300); Potassium 4.2 mmol/L (3.5-5.1); Sodium 138 mmol/L (135-145); Total Protein 6.1 g/dl (6.3-8.2); eGFR > 60.00
[2023-12-11 00:30] VITALS: BP 105/73; BMI 20.1
[2023-12-11 01:00] VITALS: BP 105/75
--- NOTE | 2023-12-11 01:14 | ED.GENMED ---
History of Present Illness
<JAIME Ross - Last Filed: 12/11/23 03:42>
General
Chief Complaint: Abdominal Pain
Source: patient
Exam Limitations: none
Time Seen by Provider: 12/11/23 00:56
Nursing documentation reviewed up to this point in time: agreed with
History of Present Illness
History of Present Illness:
Patient is a 43yo F w/ hx of alcoholic cirrhosis & hepatobiliary syndrome presents to ED w/ complaint of abd cramping x12 hrs. Reports pain started about 5 mins after waking up at noon. Denies any new foods, meds, or activities recently. She reports
severe constant cramping that 'feels like period cramps + constipation x10'. Reports constipation last week that resolved, last BM was yesterday. Admits to some nausea earlier which has resolved. Denies vomiting, diarrhea, PUENTE, and dizziness. Reports
continued rash on B/L lateral hips. Reports urination was painful due to cramping but denies other uinary sxs.
Past History
<JAIME Ross - Last Filed: 12/11/23 03:42>
Past History
ED Past Medical History: COPD, Other (ETOH abuse, alcoholic cirrhosis) and Other (TBI)
ED Past Surgical History: Other
Social History
Tobacco: Non-smoker
Alcohol: Former
Drug: None
Personal: Single
Living: with family
Employment: Disabled
Review of Systems
<JAIME Ross - Last Filed: 12/11/23 03:42>
Review of Systems
Constitutional: Reports fever and chills; Denies fatigue
EENT: Denies sore throat or runny nose
Respiratory: Denies cough or trouble breathing
Cardiac: Denies chest pain or palpitations
ABD/GI: Reports abdominal pain; Denies nausea, vomiting, diarrhea or constipated
: Denies dysuria or frequency
Musculoskeletal: Denies joint pain or muscle pain
Skin: Reports rash
Neurological: Denies dizzy, headache or numbness
Phy Exam
<Mara Marcelino [facility] - Last Filed: 12/11/23 03:42>
General Physical Exam
General Presentation: no apparent distress
General age: appears stated age
General Skin: warm and dry
General Habitus: normal
General Mental: alert
Eye Exam
Eye Exam: PERRL
Cardiovascular Exam
Cardiovascular Exam: regular rate/rhythm, no edema, no gallop and no murmur
Pulmonary Exam
Pulmonary Exam: lungs clear, no respiratory distress, no rales, no crackles, no rhonchi and no wheezing
Gastrointestinal Exam
Gastrointestinal Exam: normal bowel sounds, soft, no pulsatile mass and non distended
Palpation: left lower quadrant: Moderate tenderness and right lower quadrant: Moderate tenderness
Course
<Mara Marcelino [facility] - Last Filed: 12/11/23 03:42>
Orders/Labs/Results
Orders:
Orders
12/10/23 22:10
Test Result ONCE
12/10/23 22:23
Complete Blood Count/With Diff Urgent
Comprehensive Metabolic Panel Urgent
HCG, Serum Qualitative Screen Urgent
Lipase Urgent
12/11/23 01:34
CT Abd/pelvis W Iv Cont Urgent
Comment:
Reason For Exam: severe crampy lower abd pain x 1 day
12/11/23 01:35
Bladder Scan- Treatment ONCE
12/11/23 01:49
Lactic Acid Urgent
Blood Culture Q30M
[facility]ARREN Source: Blood/Venous
Specimen Description:
12/11/23 02:42
Urinalysis Reflex To Culture Urgent
Date Specimen was Collected: 12/11/23
Time Specimen was Collected: 02:20
Blood Culture Q30M
[facility]ARREN Source: Blood/Venous
Specimen Description:
Abnormal Lab Results
12/10/23 12/11/23
22:23 02:42
WBC 4.2 L 10^3/uL
(4.8-10.8)
RDW 17.9 H %
(11.5-14.5)
Plt Count 81 L D 10^3/uL
(130-400)
MPV 10.9 H fL
(7.4-10.4)
Absolute Lymphs (auto) 0.9 L 10^3/uL
(1.2-3.4)
Glucose 102 H mg/dl
(70-99)
Total Bilirubin 2.0 H mg/dl
(0.2-1.3)
Total Protein 6.1 L g/dl
(6.3-8.2)
Urine Ketones Trace A
(Negative)
Urine Bilirubin 1+ A
(Negative)
Urine Urobilinogen 2+ A
(Neg - 1+)
12/10/23 22:23
12/10/23 22:23
Vital Signs
Initial and Last Documented VS:
Initial Vital Signs
Temp Pulse Resp BP
98.9 F 108 24 115/70
12/10/23 22:06 12/10/23 22:06 12/10/23 22:06 12/10/23 22:06
Last Documented Vital Signs
Temp Pulse Resp BP Pulse Ox
98.9 F 89 24 95/60 93
12/10/23 22:06 12/11/23 00:29 12/10/23 22:06 12/11/23 03:00 12/11/23 03:15
<Jyotsna Conde, DO - Last Filed: 12/11/23 03:22>
Orders/Labs/Results
Orders:
Orders
12/10/23 22:10
Test Result ONCE
12/10/23 22:23
Complete Blood Count/With Diff Urgent
Comprehensive Metabolic Panel Urgent
HCG, Serum Qualitative Screen Urgent
Lipase Urgent
12/11/23 01:34
CT Abd/pelvis W Iv Cont Urgent
Comment:
Reason For Exam: severe crampy lower abd pain x 1 day
12/11/23 01:35
Bladder Scan- Treatment ONCE
12/11/23 01:49
Lactic Acid Urgent
Blood Culture Q30M
WARREN Source: Blood/Venous
Specimen Description:
12/11/23 02:42
Urinalysis Reflex To Culture Urgent
Date Specimen was Collected: 12/11/23
Time Specimen was Collected: 02:20
Blood Culture Q30M
[facility]ARREN Source: Blood/Venous
Specimen Description:
Abnormal Lab Results
12/10/23 12/11/23
22:23 02:42
WBC 4.2 L 10^3/uL
(4.8-10.8)
RDW 17.9 H %
(11.5-14.5)
Plt Count 81 L D 10^3/uL
(130-400)
MPV 10.9 H fL
(7.4-10.4)
Absolute Lymphs (auto) 0.9 L 10^3/uL
(1.2-3.4)
Glucose 102 H mg/dl
(70-99)
Total Bilirubin 2.0 H mg/dl
(0.2-1.3)
Total Protein 6.1 L g/dl
(6.3-8.2)
Urine Ketones Trace A
(Negative)
Urine Bilirubin 1+ A
(Negative)
Urine Urobilinogen 2+ A
(Neg - 1+)
12/10/23 22:23
12/10/23 22:23
Vital Signs
Initial and Last Documented VS:
Initial Vital Signs
Temp Pulse Resp BP
98.9 F 108 24 115/70
12/10/23 22:06 12/10/23 22:06 12/10/23 22:06 12/10/23 22:06
Last Documented Vital Signs
Temp Pulse Resp BP Pulse Ox
98.9 F 89 24 95/60 93
12/10/23 22:06 12/11/23 00:29 12/10/23 22:06 12/11/23 03:00 12/11/23 03:15
<JAIME Ross - Last Filed: 12/11/23 03:42>
MDM/Problems Addressed
Differential Diagnosis Includes:
colitis, mesenteric ischemia, UTI
<JAIME Ross - Last Filed: 12/11/23 03:42>
*Critical Care Note
Total Time (30-74mins, 75-104mins- exclusive of procedures): Not Applicable
<Jyotsna Conde DO - Last Filed: 12/11/23 03:22>
*Radiology
Radiology exam reviewed: radiology read reviewed
*Pulse Oximetry
Patient hypoxic: no
ED Attending Note
<JAIME Ross - Last Filed: 12/11/23 03:42>
-
Portions of this chart may have been created with voice recognition software.� Occasional wrong word or��sound alike� substitutions may have occurred due to the inherent limitations of voice recognition software.
<Jyotsna Conde DO - Last Filed: 12/11/23 03:22>
ED Attending Note
Patient seen and examined by attending physician: Yes
I performed the substantive portion of visit, reviewed & personally made and approve the management plan that is documented in note by myself or EFREN.: Yes
ED Attending Note:
This is a 43-year-old female with history of alcoholic cirrhosis with ascites, esophageal varices that last required banding approximately 6 months ago. She has history of SBP March of this year and at that time presented with generalized upper
abdominal pain accompanied with fever. Since then patient has been doing well, has not required paracentesis since March and last upper endoscopy in October showed no evidence of esophageal varices.
Since this afternoon however she complains of crampy mid to lower abdominal pain, severe in nature, waxes and wanes and seems much worse when she attempts to void. She complains of significant burning with urination along with severe crampy mid to
lower abdominal pain with voiding. Current symptoms feel quite different from previous episodes of UTIs which generally present with urinary frequency, dysuria. Pain is much worse when she stands accompanied with some lower pelvic/vaginal as well
as rectal pressure when she stands.
She has had mild intermittent chills but does not believe she has had a fever. No flank pain, no diarrhea, no constipation. She passed a normal bowel movement yesterday. Brief nausea without vomiting.
She has not had a period in quite some time. She denies risk of . No prior history of ovarian cysts.
GENERAL: 43-year-old mildly frail appearing woman is bright and alert, pleasant, appears in no acute distress. Oral temperature 99 �F.
EYE: pupils equal and reactive. Minimally icteric.
NECK: Supple, nontender, no meningismus, no significant adenopathy.
ENT: posterior pharynx is clear, oral mucosa is moist. No rhinorrhea.
CARDIAC: Regular rate and rhythm. no murmur.
LUNGS: Clear breath sounds bilaterally, no acute respiratory distress, no wheezes/rales/rhonchi
ABDOMEN: Soft, nondistended, mild to moderate tenderness suprapubic as well as right lower quadrant, no r/g, no cvat. normoactive BS.
NEUROLOGICAL: Alert and oriented x3, no focal neuro deficits.
SKIN: Warm and dry, normal color, skin intact. No rash.
MUSCULOSKELETAL: No C/C/E. peripheral pulses are full and equal b/l. No palpable tenderness.
PSYCH: Normal and appropriate interaction.
Concern for UTI, pyelonephritis, appendicitis, colitis, ovarian cyst. Due to history of chronic liver disease, prior history of SBP, this is also a consideration.
Labs are overall stable and unchanged from previous. Mild leukopenia, mild thrombocytopenia, mildly elevated bilirubin of 2.0 with normal LFTs. hCG is negative.
Will check urinalysis, CT abdomen pelvis. Will add lactic acid and due to concern for low-grade fever will check blood cultures as well.
12/11/2023 0320 AM
Patient continues to appear comfortable.
Urinalysis shows no evidence of infection.
Lactic acid is normal.
CAT scan shows small amount of high attenuation layering material in the pelvis suggestive of blood products, suggestive of ruptured hemorrhagic ovarian cyst. There is note of a questionable involuting follicle versus small cyst of right ovary.
Patient follows with pain management, maintained on as needed oxycodone which she can continue for as needed pain.
Recommend follow-up with her social work administrator for recheck. She has been evaluated by [facility] within the past year reporting unremarkable Pap/pelvic exam.
CAT scan also notes moderate stool burden and recommend she increase her daily stool softener as well as increase her lactulose.
Discharge Plan
Departure
Patient Disposition: Home (Routine Discharge)
Date of Disposition: 12/11/23
Time of Disposition: 03:18
Patient with high blood pressure during this ER visit?: No
Condition: Good
Discharge Problem:
ruptured hemorrhagic ovarian cyst, Constipation
Instructions: Constipation, Adult (DC), Ovarian Cyst ED
Prescriptions:
No Action
thiamine HCl (vitamin B1) 100 mg Tablet
100 mg PO DAILY Qty: 0 0RF
folic acid 1 mg tablet
800 mcg PO DAILY
furosemide 40 MG tablet
40 mg PO DAILY Qty: 30 0RF
sucralfate 100 mg/mL Suspension
10 ml PO QID PRN (Reason: Gastrointestinal Issue)
spironolactone 100 mg Tablet
150 mg PO DAILY
Rx Instructions:
04/01/2023, take with 50 mg for a total of 150 mg.
oxycodone 10 mg Tablet
10 mg PO Q6HPRN PRN (Reason: severe pain) Qty: 1 0RF
pantoprazole 40 mg tablet,delayed release (DR/EC)
40 mg PO DAILY
lactulose 20 gram/30 mL solution
20 g PO BID
Xifaxan 550 mg Tablet
550 mg PO BID
Vitamin D3
1 tab PO DAILY
multivitamin [One A Day Vitamin] Tablet
1 tab PO DAILY
haloperidol [Haldol] 2 mg Tablet
2 mg PO DAILY
hydrocortisone 2.5 % cream
1 applic topical BID 7 Days Qty: 30 0RF
Referrals:
Brigid Rivera PA [Family Provider] - Call in 1-3 days for appt
Interventions
Interventions:
*Risk Screen - Suicide Last Done: 12/10/23 22:06
*General Assessment Last Done: 12/11/23 00:31
*Neglect/Abuse Screening Last Done: 12/10/23 22:06
ED- Fall Risk Assessment Last Done: 12/11/23 00:30
*ED COVID-19 Vaccine History Last Done: 12/11/23 00:31
*Nursing Disposition Last Done: 12/11/23 03:32
EV-Iaruvj-Dgnllmwizz Assessment Last Done: 12/11/23 00:27
Discharge Date and Time
Discharge Date/Time: 12/11/23 03:37
Print Language: IRISH
[2023-12-11 02:11] LABS: Lactic Acid 1.1 mmol/L (0.7-2.0)
[2023-12-11 02:56] LABS: Urine Albumin Trace (Neg - Trace); Urine Bilirubin 1+ (Negative); Urine Character Clear (Clear); Urine Glucose Negative (Negative); Urine Ketone Trace (Negative); Urine Leukocyte Negative (Negative); Urine Nitrite Negative (Negative); Urine Occult Blood Negative (Negative); Urine Urobilinogen 2+ (Neg - 1+)
[2023-12-11 02:58] LABS: Urine Color Amber
[2023-12-11 03:00] VITALS: BP 95/60
== END 2023-12-11 03:37 | disposition home or self-care (01) ==
LOC: EMR 22:03
PROVIDERS: Emergency Medicine; EMERGENCY PHYSICIAN Emergency Medicine; FAMILY PHYSICIAN Physician Assistant Medical
DX: N83.209 Unspecified ovarian cyst, unspecified side (principal); K59.00 Constipation, unspecified; J44.9 Chronic obstructive pulmonary disease, unspecified; K70.30 Alcoholic cirrhosis of liver without ascites
CPT/HCPCS: 99284; 74177; 80053; 81003; 83605; 83690; 84703; 85025; 87040; Q9967

== ENCOUNTER 2023-12-13 14:45 | Outpatient (RCR) | payer MEDICARE, OTHER, SELFPAY | END 2023-12-13 16:00 | disposition home or self-care (01) | LOC: PURB 14:45 | PROVIDERS: ATTENDING PHYSICIAN Internal Medicine; FAMILY PHYSICIAN Physician Assistant Medical | DX: J98.4 Other disorders of lung (principal); R09.02 Hypoxemia; R94.2 Abnormal results of pulmonary function studies; J90 Pleural effusion, not elsewhere classified; Z87.891 Personal history of nicotine dependence | CPT/HCPCS: G0239 ==

== ENCOUNTER → 2023-12-14 13:39 | Outpatient (REF) | payer MEDICARE, OTHER, SELFPAY | LOC: HWLAB 13:39 | PROVIDERS: ATTENDING PHYSICIAN Internal Medicine Transplant Hepatology; FAMILY PHYSICIAN Physician Assistant Medical | DX: K70.30 Alcoholic cirrhosis of liver without ascites (principal) | CPT/HCPCS: 36415 ==

== ENCOUNTER 2024-01-01 14:45 | Outpatient (RCR) | payer MEDICARE, OTHER, SELFPAY | END 2024-01-04 13:19 | disposition home or self-care (01) | LOC: PURB 14:45 | PROVIDERS: ATTENDING PHYSICIAN Internal Medicine; FAMILY PHYSICIAN Physician Assistant Medical | DX: J98.4 Other disorders of lung (principal); R09.02 Hypoxemia; J90 Pleural effusion, not elsewhere classified; R94.2 Abnormal results of pulmonary function studies; Z87.891 Personal history of nicotine dependence | CPT/HCPCS: G0239 ==

== ENCOUNTER → 2024-01-09 17:33 | Outpatient (REF) | payer MEDICARE, OTHER, SELFPAY | LOC: MRI 3T 17:33 | PROVIDERS: ATTENDING PHYSICIAN Internal Medicine Gastroenterology; FAMILY PHYSICIAN Physician Assistant Medical | DX: K70.31 Alcoholic cirrhosis of liver with ascites (principal) | CPT/HCPCS: 74183; A9581 ==

== ENCOUNTER → 2024-01-24 13:34 | Outpatient (REF) | payer MEDICARE, OTHER, SELFPAY ==
[2024-01-24 15:31] LABS: APTT 34.4 Sec (23.4-35.0); INR 1.45; PT 18.2 Sec (11.4-14.6)
[2024-01-24 15:36] LABS: % Basophils 0.6 % (0-2); % Lymphocytes 24.7 % (20.5-51.1); % Monocytes 6.8 % (1.7-9.3); % Neutrophils 63.9 % (42.2-75.2); Absolute Eosinophils 0.1 10^3/uL (0-0.7); Absolute Lymphocytes 0.8 10^3/uL (1.2-3.4); Absolute Monocytes 0.2 10^3/uL (0.1-0.6); Absolute Neutrophils 2.1 10^3/uL (1.4-6.5); Hematocrit 44.8 % (37.0-47.0); Mean Corp Hgb Conc. 33.5 g/dL (33.0-37.0); Mean Corpuscular Hgb 31.6 pg (27.0-31.0); Mean Corpuscular Volume 94.5 fL (81.0-99.0); Mean Platelet Volume 11.9 fL (7.4-10.4); Nucleated Red Blood Cells % 0 %; Platelet Count 50 10^3/uL (130-400); Red Blood Cell Count 4.74 10^6/uL (4.20-5.40); Red Cell Dist. Width 14.8 % (11.5-14.5); White Blood Cell Count 3.2 10^3/uL (4.8-10.8)
[2024-01-24 15:46] LABS: ALT (SGPT) 23 U/L (0-35); AST (SGOT) 46 U/L (14-36); Albumin 3.9 g/dl (3.5-5.0); Alkaline Phosphatase 50 U/L (38-126); Blood Urea Nitrogen 11 mg/dl (7-17); Calcium 8.5 mg/dl (8.4-10.2); Carbon Dioxide 26 mmol/L (22-30); Chloride 102 mmol/L (98-107); Direct Bilirubin 0.6 mg/dl (0.0-0.4); Glucose 104 mg/dl (70-99); Potassium 3.7 mmol/L (3.5-5.1); Sodium 138 mmol/L (135-145); Total Bilirubin 2.4 mg/dl (0.2-1.3); Total Protein 6.3 g/dl (6.3-8.2); eGFR > 60.00
== END ==
LOC: HWLAB 13:34
PROVIDERS: ATTENDING PHYSICIAN Internal Medicine Gastroenterology; FAMILY PHYSICIAN Physician Assistant Medical
DX: K70.31 Alcoholic cirrhosis of liver with ascites (principal)
CPT/HCPCS: 36415; 80048; 80076; 85025; 85610; 85730

== ENCOUNTER 2024-03-18 11:19 | Outpatient (RCR) | payer SELFPAY | END 2024-03-18 23:59 | disposition home or self-care (01) | LOC: PURBM 11:19 | PROVIDERS: ATTENDING PHYSICIAN Internal Medicine | DX: J84.9 Interstitial pulmonary disease, unspecified (principal); J98.4 Other disorders of lung ==

== ENCOUNTER 2024-04-23 06:18 | Day surgery (SDC) | payer MEDICARE, OTHER, SELFPAY ==
[2024-04-23 12:34] VITALS: BMI 17.6
[2024-04-23 12:40] VITALS: BP 123/83
[2024-04-23 14:19] VITALS: BP 108/72
[2024-04-23 14:30] VITALS: BP 109/69
[2024-04-23 14:45] VITALS: BP 112/71
[2024-04-23 14:55] VITALS: BP 106/66
== END 2024-04-23 15:10 | disposition home or self-care (01) ==
LOC: SDS 06:18
PROVIDERS: ATTENDING PHYSICIAN Internal Medicine Gastroenterology
DX: I85.11 Secondary esophageal varices with bleeding (principal); K22.89 Other specified disease of esophagus; K31.89 Other diseases of stomach and duodenum
CPT/HCPCS: 43244